=== PATIENT | female | born 1950 | race Caucasian/White ===

== ENCOUNTER → 2016-04-18 | Outpatient (CLI) | payer OTHER ==
[~2016-04-18] MED LIST: ACET-1222 PO; ACET650T51 PO; ASCO500C3 PO; B-COCAP2 PO; BILBERRY PO; CALC500C73 PO; CHOL1TAB PO; COD LIVER OIL PO; CURCUMIN PO; CYAN1TAB28 PO; GARL400T4 PO; KETO2CRE14 TOP; LUTEIN PO; MAGN500T4 PO; MISC1CAP PO; MULT1CHW39 PO; NXM/40 PO; OMEG10007 PO; POTASSIUM PO; QUIN1CAP5 PO; TURMERIC PO; VITA400C15 PO; VITAMIN D 3 PO; [UNRECOGNIZED DRUG - OTHER] PO
--- NOTE | 2016-04-18 10:34 | DIAGNOSTIC IMAGING REPORT ---
LEFT WRIST 4 VIEWS CLINICAL HISTORY: Left wrist pain of one month's duration. FINDINGS: 4 views of the left wrist are obtained. No prior studies are available for comparison at the time of dictation. The skeletal structures are osteopenic. No fracture is seen. Arthritic change is present at the first carpometacarpal joint. The overlying soft tissues are within normal limits. IMPRESSION: No acute bony abnormality is seen in the left wrist. Electronically signed by: Jesus Galan M.D. 04/18/2016 10:32 AM Dictated Date/Time: 04/18/2016 10:31 AM
== END | disposition home or self-care (01) ==
LOC: C.RADBC 09:23
PROVIDERS: ATTEND Internal Medicine
DX: M25.532 Pain in left wrist (principal)

== ENCOUNTER → 2016-05-25 | Outpatient (CLI) | payer OTHER ==
--- NOTE | 2016-05-25 14:37 | MAMMOGRAPHY REPORT ---
BILATERAL DIGITAL SCREENING MAMMOGRAM WITH CAD: 05/25/2016 CLINICAL HISTORY: Routine screening. Patient has no complaints. TECHNIQUE: Bilateral CC, MLO, repeat left MLO and bilateral CC views with the nipples in profile wer e obtained. Current study was also evaluated with a Computer Aided Detection (CAD) system. COMPARISON: Comparison is made to exams dated: 01/28/2011 mammogram and 01/27/2010 mammogram - [facility]. BREAST COMPOSITION: The tissue of both breasts is almost entirely fatty. FINDINGS: There is stable asymmetry in the 9:00 anterior subareolar right breast. Scattered stable benign-appearing calcifications bilaterally. No suspicious mass, architectural distortion or clust er of suspicious microcalcifications is seen. IMPRESSION: ACR BI-RADS CATEGORY 1: NEGATIVE There is no mammographic evidence of malignancy. A 1 year screening mammogram is recommended. The p atient will receive written notification of the results. Approximately 10% of breast cancers are not detected with mammography. A negative mammographic repor t should not delay biopsy if a clinically suggestive mass is present. France Momin M.D. ay/:05/25/2016 14:02:48 Bone Char Operator: Katie DXION(Luzmaria)(Orion)(BD), [facility] letter sent: Normal 1/2 BI-RADS Code: ACR BI-RADS Category 1: Negative
== END | disposition home or self-care (01) ==
LOC: C.MAMM 10:40
PROVIDERS: ATTEND Obstetrics & Gynecology
DX: Z12.31 Encounter for screening mammogram for malignant neoplasm of breast (principal)

== ENCOUNTER → 2016-05-27 | Outpatient (CLI) | payer OTHER | END | disposition home or self-care (01) | LOC: C.PAPS 16:06 | PROVIDERS: ATTEND Obstetrics & Gynecology | DX: Z01.419 Encounter for gynecological examination (general) (routine) without abnormal findings (principal) ==

== ENCOUNTER → 2016-06-11 | Outpatient (CLI) | payer OTHER | END | disposition home or self-care (01) | LOC: C.LAB1850 08:56 | PROVIDERS: ATTEND Obstetrics & Gynecology | DX: N83.299 Other ovarian cyst, unspecified side (principal) ==

== ENCOUNTER → 2016-06-16 | Day surgery (SDC) | payer OTHER ==
[2016-06-11 15:48] VITALS: Ht 154.9 cm; Wt 86.8 kg
[~2016-06-16] VITALS: Ht 154.9 cm; Wt 86.8 kg
[~2016-06-16] MED LIST changes: +500ML BSS 0.3ML EPI 1:1000PF IRRIG ONE; -ACET-1222 PO; +ACETAMINOPHEN 325 MG TAB PO PRN; +AMVISC PLUS 0.8ML SYRINGE INT OCU ONE; +ATROPINE SULFATE 0.1 MG/ML 5ML SYR IV PRN; -B-COCAP2 PO; +BSS FLUSH ONE; -CALC500C73 PO; -CHOL1TAB PO; +EpINEphrine INJ 1MG/ML AMP 1 MG/ML AMP ONE; -GARL400T4 PO; +LACTATED RINGER'S 1000ML 500 ML IV SCH; +LIDOCAINE 3.5% OPH GEL PER APPLICATION CHARGE ONE; +LIDOCAINE HCL 1% MPF 2 ML VIAL ONE; +MIDAZOLAM HCL 1 MG/ML 2ML VIAL ONE; -MULT1CHW39 PO; +OCUCOAT 1 ML SOLN IO ONE; +POVIDONE-IODINE OP SOLN 30 ML BTL ONE; +PROPARACAINE 0.5% OP SOLN PER DROP CHARGE OPR SCH; +TOBRAMYCIN/DEXAMETHASONE OPH OINT PER APPLN CHARGE ONE
[2016-06-16] MEDS: PHENYLEPHRINE HCL 2.5% OP SOLN PER DROP CHARGE OPR SCH ×2 (08:12→08:17)
[2016-06-16] MEDS: TROPICAMIDE 1% OP SOLN PER DROP CHARGE OPR SCH ×2 (08:13→08:18)
[2016-06-16] MEDS: CYCLOPENTOLATE HCL 1% OP SOLN PER DROP CHARGE OPR SCH ×2 (08:14→08:19)
[2016-06-16] MEDS: KETOROLAC 0.5% OP SOLN PER DROP CHARGE OPR SCH ×2 (08:15→08:20)
[2016-06-16] MEDS: GATIFLOXACIN OP SOLN PER DROP CHARGE OPR SCH ×2 (08:16→08:26)
--- NOTE | 2016-06-16 08:31 | History & Physical Bridge - SC ---
H&P Re-Evaluation Bridge Note: I have examined the patient, reviewed the History & Physical and in the interval since the performance of the History & Physical I have noted the following changes of clinical significance: No changes noted
--- NOTE | 2016-06-16 09:13 | Discharge Instructions-SurgCtr ---
Discharge Instructions Date of Service Jun 16, 2016. Visit Reason for Visit: Right Cataract Discharge Discharge Diagnosis / Problem: cataract Discharge Goals Goal(s): Improve function Activity Recommendations Activity Limitations: per Instructions/Follow-up section Anesthesia . Post Anesthesia Instructions: If you have had General Anesthesia or IV Sedation: * Do not drive today. * Resume driving when surgeon permits. * Do not make important decisions or sign legal documents today. * Call surgeon for: 1. Temperature elevations greater than 101 degrees F. 2. Uncontrollable pain. 3. Excessive bleeding. 4. Persistent nausea and vomiting. 5. Medication intolerance (nausea, vomiting or rash). * For nausea and vomiting use only clear liquids such as: tea, soda, bouillon until nausea subsides, then gradually increase diet as tolerated. * If you have any concerns or questions, call your surgeon's office. If physician is unavailable and it is an emergency, call 911 or go to the nearest emergency room. . Instructions / Follow-Up Instructions / Follow-Up ACTIVITY RECOMMENDATIONS: * No strenuous lifting, jogging or running for 4 days * No swimming or yard work for 1 week. * Limited bending is permitted, such as putting on shoes. RETURN TO SCHOOL/WORK: No work until seen by physician in office. MEDICATIONS: Resume previous medications unless instructed otherwise by your surgeon. This includes eye drops for glaucoma. Zymaxid/Gatifloxacin (alanis cap) - one drop every 2 hours until bedtime Nevanac/Ilevro/Prolensa/Ketorolac (iglesias cap) - one drop every 4 hours until bedtime Prednisolone (white/pink cap, SHAKE WELL) - one drop every 2 hours until bedtime Starting tomorrow - all 3 drops every 4 hours until seen in the office Optive drops - as needed for discomfort SPECIAL CARE INSTRUCTIONS: * Wear eyeshield when sleeping, for four nights. * You may wear your own glasses or sunglasses while awake. * You may read or watch TV * You may shower and wash your face, but be gentle around the eye and pat dry. * Blurry vision and mild irritation are normal. * Call office if pain is more severe or vision becomes dark at . FOLLOW UP VISIT: Follow-up with Dr Iqbal tomorrow. Diet Recommendations Home Diet: resume previous diet Procedures Procedures Performed: Right Cataract Phacoemulsification With Intraocular Lens Implant Pending Studies Studies pending at discharge: no Medical Emergencies . Who to Call and When: Medical Emergencies: If at any time you feel your situation is an emergency, please call 911 immediately. . Non-Emergent Contact Non-Emergency issues call your: Software Validation Technician . . "Provider Documentation" section prepared by Manfred Iqbal.
--- NOTE | 2016-06-16 09:13 | [facility] Operative Report ---
Operative Report Date of Service Jun 16, 2016. Operative Report 1. PREOPERATIVE DIAGNOSIS: Cataract of the right eye. 2. POSTOPERATIVE DIAGNOSIS: Same. 3. PROCEDURE: Phacoemulsification with intraocular lens implantation of the right eye. SURGEON: Dr. Manfred Iqbal. ANESTHESIA: Topical Lidocaine gel, 1% Non- Preserved intracameral Lidocaine, and monitored intravenous sedation. INDICATIONS FOR THE PROCEDURE: The patient is a 65 - year-old female with a history of cataract of the right eye causing significant visual impairment. The details of the proposed procedure were explained to the patient who asked appropriate questions and following discussion of all risks, benefits and alternatives agreed to have the procedure done. 4. OPERATION AND FINDINGS: DESCRIPTION OF PROCEDURE: After informed consent was obtained, the patient was brought to the Operating Room at the [facility]. The patient was placed in a supine position and then the right eye was prepped and draped in the usual sterile fashion for intraocular surgery. A drop of topical Lidocaine gel was placed in the operative eye. A wire lid speculum was then placed in the fornices. A corneal paracentesis was then created temporally. The Non-Preserved Lidocaine was then instilled into the anterior chamber. The anterior chamber was then pressurized with viscoelastic. A 2.0 mm clear corneal incision was then created temporally. A cystotome was inserted into the anterior chamber and used to create a tear in the anterior lens capsule. This capsular tear was then used to create a small flap and the flap was dragged in a counterclockwise direction in order to create a continuous curvilinear capsulorrhexis. Hydrodissection was accomplished with balanced salt solution. Phacoemulsification of the lens nucleus was then performed in a standard [id number] technique. The phaco time was 23 seconds with an average power of 12 %. The remaining cortical material was removed using irrigation aspiration. The capsular bag was then filled with viscoelastic. A [employer]ch [employer] Lomb MI60L +20.0 diopters lens was then loaded into the injector and injected into the capsular bag. The remaining viscoelastic was removed with the irrigation aspiration handpiece. The wound was hydrated and then checked and found to be watertight. The intraocular pressure was checked and found to be adequate. The wire lid speculum was removed and the patient's face was cleaned and dried. TobraDex ointment was placed in the inferior fornix. The patient was discharged to the Recovery Room having tolerated the procedure well. There were no complications. The patient will be seen tomorrow in the office for follow-up. I attest to the content of the Intraoperative Record and any orders documented therein. Any exceptions are noted below.
[2016-06-16 09:15] VITALS: TEMP 36.6
[2016-06-16 09:36] VITALS: BP 130/69; PULSE 59; O2SAT 97
--- NOTE | 2016-06-16 09:45 | Anesthesia Progress Nt - [facility] ---
Anesthesia Post Op Note Date & Time Jun 16, 2016 at 09:46 Vital Signs Vital Signs Past 12 Hours Date Time Temp Pulse Resp B/P Pulse Ox O2 Delivery O2 Flow Rate FiO2 06/16/16 09:36 59 16 130/69 97 Room Air 06/16/16 09:15 36.6 57 18 136/76 94 Room Air 06/16/16 08:06 36.9 57 16 131/74 97 Room Air Notes Mental Status: alert / awake / arousable, participated in evaluation Pt Amnestic to Procedure: Yes Nausea / Vomiting: adequately controlled Pain: adequately controlled Airway Patency, RR, SpO2: stable & adequate BP & HR: stable & adequate Hydration State: stable & adequate Anesthetic Complications: no major complications apparent
== END | disposition home or self-care (01) ==
LOC: X.SURG 07:44 → MERGE 11:30
PROVIDERS: ATTEND Ophthalmology
DX: H26.9 Unspecified cataract (principal); Z88.0 Allergy status to penicillin; Z88.2 Allergy status to sulfonamides

== ENCOUNTER → 2016-09-24 | Outpatient (CLI) | payer OTHER ==
[~2016-09-24] MED LIST changes: -500ML BSS 0.3ML EPI 1:1000PF IRRIG ONE; -ACETAMINOPHEN 325 MG TAB PO PRN; -AMVISC PLUS 0.8ML SYRINGE INT OCU ONE; -ATROPINE SULFATE 0.1 MG/ML 5ML SYR IV PRN; -BSS FLUSH ONE; -EpINEphrine INJ 1MG/ML AMP 1 MG/ML AMP ONE; -LACTATED RINGER'S 1000ML 500 ML IV SCH; -LIDOCAINE 3.5% OPH GEL PER APPLICATION CHARGE ONE; -LIDOCAINE HCL 1% MPF 2 ML VIAL ONE; -MIDAZOLAM HCL 1 MG/ML 2ML VIAL ONE; -OCUCOAT 1 ML SOLN IO ONE; -POVIDONE-IODINE OP SOLN 30 ML BTL ONE; -PROPARACAINE 0.5% OP SOLN PER DROP CHARGE OPR SCH; -TOBRAMYCIN/DEXAMETHASONE OPH OINT PER APPLN CHARGE ONE
[2016-09-24 12:24] LABS: BLOOD UREA NITROGEN 13 mg/dl (7-18); BUN/CREATININE RATIO 18.6 (10-20); CARBON DIOXIDE 30 mmol/L (21-32); CHLORIDE 105 mmol/L (98-107); CREATININE 0.71 mg/dl (0.60-1.20); GLUCOSE 105 mg/dl (70-99); SODIUM 140 mmol/L (136-145)
[2016-09-24 12:26] LABS: CHOLESTEROL 193 mg/dl (0-200); CHOLESTEROL/HDL RATIO 3.9; HDL CHOLESTEROL 49 mg/dl; LDL CHOLESTEROL CALCULATED 126 mg/dl; TRIGLYCERIDES 88 mg/dl (0-150); VERY LOW DENSITY LIPOPROT CALC 18 mg/dl
[2016-09-24 12:31] LABS: CALCIUM 9.6 mg/dl (8.5-10.1)
[2016-09-24 12:46] LABS: ESTIMATED AVERAGE GLUCOSE 123 mg/dl; HA1C FLAG Normal (Normal)
--- NOTE | 2016-09-30 13:18 | CODING QUERY MEDICAL NECESSITY ---
CQSUPPORTING DIAGNOSIS NEEDED A supporting diagnosis is required for the test/procedure performed on this patient in order for us to be reimbursed by the patient's insurance. Please provide a supporting diagnosis for the following test/procedure listed below next to the test name along with your signature. *If there is no additional diagnosis for this patient that would support the following test/procedure please document that below next to the test/procedure. Test(s)/Procedure(s) that require a supporting diagnosis: DOS 09/24/16 GLYCATED HEMOGLOBIN TEST (PRE-DIABETES DOES NOT COVER) Provider Signature: Date: Thank you Evelina Leon Health Information Management Once completed, please kindly fax back to [phone] For questions please call [phone]
== END | disposition home or self-care (01) ==
LOC: C.LAB1850 10:44
PROVIDERS: ATTEND Internal Medicine
DX: R73.03 Prediabetes (principal); E78.00 Pure hypercholesterolemia, unspecified; Z86.39 Personal history of other endocrine, nutritional and metabolic disease

== ENCOUNTER → 2016-10-05 | Outpatient (CLI) | payer OTHER ==
--- NOTE | 2016-10-05 10:28 | DIAGNOSTIC IMAGING REPORT ---
ABDOMEN COMPLETE (US) CLINICAL HISTORY: Epigastric abdominal pain. COMPARISON STUDY: Renal ultrasound April 29, [address] of the abdomen and pelvis November 01, 2008. FINDINGS: No hepatic lesions are identified. There is mild dilatation of the common bile duct status post cholecystectomy. The common bile duct measures 9 mm in caliber. This is increased since CT of November 01, 2008. The pancreatic body is normal. The head and tail are obscured. The size of the spleen is normal. The right kidney measures 10 cm and the left measures 11.2 cm. There is no hydronephrosis. There is a 3.1 cm cyst within lower pole of the left kidney. No calculi or masses are identified by sonography. The caliber of the abdominal aorta is normal. Visualized portions of the IVC are patent. IMPRESSION: 1. Mild dilatation of the common bile duct, measuring 9 mm. This is likely related to prior cholecystectomy although could be correlated with obstructive liver function tests. 2. No hydronephrosis. 3. 3.1 cm left renal cyst. Electronically signed by: Mike Blair M.D. 10/05/2016 10:27 AM Dictated Date/Time: 10/05/2016 10:24 AM
== END | disposition home or self-care (01) ==
LOC: C.ULTRBC 08:46
PROVIDERS: ATTEND Internal Medicine
DX: R10.13 Epigastric pain (principal)

== ENCOUNTER → 2016-10-09 | Outpatient (CLI) | payer OTHER | END | disposition home or self-care (01) | LOC: C.LAB1850 08:17 | PROVIDERS: ATTEND Internal Medicine | DX: R10.13 Epigastric pain (principal) ==

== ENCOUNTER → 2017-05-25 | Outpatient (CLI) | payer OTHER ==
[2017-05-25 12:28] LABS: ALT/SGPT 21 U/L (12-78); AST/SGOT 18 U/L (15-37); BLOOD UREA NITROGEN 18 mg/dl (7-18); CALCIUM 8.9 mg/dl (8.5-10.1); CARBON DIOXIDE 29 mmol/L (21-32); CREATININE 0.71 mg/dl (0.60-1.20); GLUCOSE 104 mg/dl (70-99); POTASSIUM 4.1 mmol/L (3.5-5.1); SODIUM 137 mmol/L (136-145)
[2017-05-25 12:41] LABS: CHOLESTEROL 207 mg/dl (0-200); LDL CHOLESTEROL CALCULATED 140 mg/dl
[2017-05-25 13:25] LABS: HEMOGLOBIN A1C 5.9 % (4.5-5.6)
== END | disposition home or self-care (01) ==
LOC: C.LAB1850 10:09
PROVIDERS: ATTEND Internal Medicine
DX: R73.03 Prediabetes (principal); E78.00 Pure hypercholesterolemia, unspecified

== ENCOUNTER 2022-02-02 13:08 | Inpatient (IN) ==
[2022-02-02] MEDS ORDERED: fentaNYL citrate 100 MCG/2 ML VIAL IV STA (13:25)
[2022-02-02] MEDS ORDERED: SODIUM CHLORIDE 0.9% 1000ML 1,000 ML IV ONE (13:25)
[2022-02-02] MEDS ORDERED: METOPROLOL TARTRATE 1 MG/ML VIAL IV STA ×2 (13:25→14:31)
--- NOTE | 2022-02-02 13:29 | Emergency Department Note ---
Impression & Plan Atrial fibrillation with rapid ventricular response, Hypomagnesemia, Hypokalemia, Acute dehydration, Colitis ED Provider Note Name: SOPHIE WANG Age: 71 Sex: F Arrives Via: Ambulance Informant: Patient,, EMS ED Provider: Lincoln Lainez MD Chief Complaint: Illness Impression: As per impressions above Medical Decision Making: Pleasant though clearly dehydrated 71-year-old female arrives noting ongoing abdominal issues nausea vomiting and some diarrhea over the last few weeks though severely worse the last few days and now severe weakness. She is comp laining of some abdominal pain and a headache this imaging of these were obtained and CT imaging of the abdomen does reveal some colitis but fortunately CT of the head is without intracranial hemorrhage. Extensive laboratory work-up obtained and does show significant electrolyte imbalance including low potassium and low magnesium. initial replacement therapy was ordered by me. Furthermore I will note the patient arrives tachycardic and initial EKG is concerning for A. fib. In conjunction with IV fluids along with the setting of decent blood pressure I felt that IV Lopressor was reasonable and after the second dose her heart rate did start coming down to a much more acceptable region. Patient does not have peritonitis on examination, she is neurologically intact and she is not septic appearing nor do I find any clear evidence of sepsis at this time. I feel her tachycardia is secondary to new onset A. fib RVR as well as significant dehydration and not secondary to acute bacterial infection. Given her complexity and findings hospitalist was consulted for further management. I kvng l note I held off on starting any anticoagulation as her INR is already slightly elevated. This is unclear whether it is due to severe malnutrition or other pathology though will defer to hospitalist for further work-up on this. I do not think it is consistent with DIC given her other findings at this time and she has no evidence of bleeding or bruising on examination at this time either. Prior Medical Record and Triage/Nursing Notes reviewed by Me Additional history obtained from chart Differentials:Infection, dehydration, metabolic abnormality, hypo/hy perglycemia, electrolyte disturbance, anemia, hypoxia, cardiac sources, intracerebral event, toxicologic, neurologic, as well as other pathologies. Vital Signs: reviewed and remarkable for tachycardia Interventions: Normal saline bolus IV, Lopressor 5 mg IV x2, magnesium 2 g IV, potassium 10 mEq IV Labs:Reviewed and remarkable for significant laboratory derangement. Not consistent with lab error/delusional. Imaging:CT imaging of the head is unremarkable per radiology. CT imaging the abdomen shows some mild colitis distally. As per radiology EKG:As Per My interpretation: Indication Weakness/Tachycardia. Atrial fibrillation with rapid ventricular response at 147 bpm with a QTC of 525 as well as a baseline tremor noted throughout the tracings. Does not appear to be atrial flutter based on the irregularity of the beats. There is no clear ische rosemarie findings. She does have an acute change from her EKG October 25, 2021 where she was in normal sinus rhythm. Cardiac/Tele Monitoring: Cardiac Monitoring: An Order was placed for continuous cardiac monitoring. The monitor shows a rate of afib rvr with a 120 rhythm. [facility] Plan: Disposition:Hospitalization. Condition: Fair\\ History of Present Illness:71-year-old female arrives for evaluation of illness. Patient notes she has been ill for the last month or so the last few days significantly sicker. For the last 2 to 3 days increasing nausea, vomiting, diarrhea. Notes increasing lower abdominal pain. Today with a severe headache after vomiting as well. She notes she feels diffusely weak tired. She denies any specific chest pain or shortness of breath but states she just feels so exhausted she cannot ambulate. Denies any swelling in her legs or arms. Denies any neurologic deficits. Patient has had no fevers, chills, back pain, syncope, visual changes, black/bloody stools, other concerning signs or symptoms. No medications prior to arrival at home but did have 500 mL IV normal saline bolus as well as 4 mg IV Zofran. She notes her nausea is much improved but she still has severe abdominal pain along with her headache. Exertion makes worse rest makes better. Zofran did seem to help the nausea ROS: See above HPI for pertinent positives & negatives. A total of 10 systems reviewed and were otherwise negative. Past Medical History:See Below Past Surgical History:See Below Family History:See Below Social History:See Below Home Medications:See Below Allergies:See Below Vitals:Blood Pressure: 145/99, Pulse 145, RR 18, T 36.8C, O2 98% on RA Physical Exam: GENERAL: Patient is unwell, tired appearing and in moderate distress. HEAD: AT/NC EYES: No scleral icterus, unremarkable pupils. ENT: Mucous membranes moist, no nasal congestion. NECK: No masses appreciated, nomeningismus, trachea is midline. RESPIRATORY: No dyspnea. Clear to auscultation and equal bilaterally. No wheeze, no rhonchi. CARDIOVASCULAR: Tachy, Irregular.No murmurs, rubs, gallops appreciated. GASTROINTESTINAL: Hyperactive bowel sounds with vague diffuse lower abdominal TTP.No masses appreciated. BACK: No midline tenderness, no CVA tenderness EXTREMITIES: Normal motion all extremities, no cyanosis, no edema. NEUROLOGIC: Alert and oriented, no acute motor or sensory deficits, no focal weakness, cranial nerves grossly intact. SKIN: No rash, no jaundice, no diaphoresis. PSYCH: Appropriate GCS: 15 ED Course: Times/Reassessments: S heart rate improving after fluids and Lopressor. Blood pressure remained stable. She does appear much improved following these medications. She is agreeable to hospitalization. Critical Care: I have personally spent 45 minutes of critical care time in the direct management of this patient. Afib RVR and multiple electrolyte imbalance requiring resuscitation and multiple medication management. This was a life/limb threatening event. This 45 minutes is in excess of all separately billable procedures. Lincoln Lainez MD Past Med/Surg History Medical History Chronic back pain Cyst, kidney, acquired pt denies GERD (gastroesophageal reflux disease) H/O irritable bowel syndrome History of type 2 diabetes mellitus Obesity Osteoarthritis Scarlet fever hx (1967) Stress incontinence Varicose vein of leg Surgical History H/O tubal ligation History of cataract surgery RIGHT AND LEFT History of cholecystectomy OPEN History of colonoscopy History of herniorrhaphy LEFT INGUINAL HERNIA Hx of tonsillectomy Family History Sister Ovarian cancer Other Breast cancer Gallbladder disease Heart disease Hypercholesteremia Hypertension IBS (irritable bowel syndrome) No family history of adverse response to anesthesia Osteoporosis Seizure Thyroid disease Denies family history of Prostate cancer Myocardial infarction Colorectal cancer Social History Smoking Status: Former smoker Tobacco Type: Cigarettes Second Hand Exposure: No; Do You Dip or Chew Tobacco: No; Tobacco Cessation Education Requested by Patient: No Hx Alcohol Use: No Hx Substance Use: No Preferred Language: Montenegrin Communication Ability: Effective Patient Registration Supervisor Required: No Beliefs That Will Affect Care: None marital status: Current Living Situation: Alone Current Living Situation Comment: friend current occupational status: retired Other Information That Helps Us Care for You: No Feels Safe at Home: Yes Safety Concerns: Feels Safe At This Time Childhood Exposure to Second-Hand Smoke: Yes Physical Activity Frequency: Does not Exercise Seatbelt Use: always Assistive Devices: Cane Allergies Allergies Allergy/AdvReac Type Severity Reaction Status Date / Time gatifloxacin Allergy Severe redness of Verified 10/01/21 08:53 the eye (zymaxid) Penicillins Allergy Severe "ALMOST Verified 10/01/21 08:53 " venom-wasp Allergy Severe Anaphylaxis Verified 10/01/21 08:53 house dust Allergy Intermediate itchy Verified 10/01/21 08:53 house dust mite Allergy Intermediate itchy Verified 10/01/21 08:53 mold Allergy Intermediate sinus Verified 10/01/21 08:53 congestion ragweed pollen Allergy Intermediate itchy Verified 10/01/21 08:53 aspirin Allergy Unknown throat Verified 10/01/21 08:53 swelling (as a child) bee venom protein (honey bee) Allergy Unknown SWELLING Verified 10/01/21 08:53 AND SOB Sulfa (Sulfonamide Allergy Unknown HIVES Verified 10/01/21 08:53 Antibiotics) glue Allergy Intermediate irritation Uncoded 10/01/21 08:53 on skin when using in the past EYE DROPS WITH SULFATE Allergy Unknown HIVES Uncoded 10/01/21 08:53 FRESHLY CUT GRASS Allergy Unknown SHORTNESS Uncoded 10/01/21 08:53 OF BREATH Home Meds Home Medications Medication Instructions Recorded Confirmed acetaminophen 650 mg 2 tab PO Q12H PRN Pain 04/25/18 02/02/22 tablet,extended release (Tylenol Arthritis Pain) cholecalciferol (vitamin D3) 125 5,000 unit PO QPM 04/25/18 02/02/22 mcg (5,000 unit) tablet (Vitamin D3) potassium gluconate 595 mg (99 mg) 1 tab PO QAM 04/25/18 02/02/22 tablet,extended release turmeric 400 mg capsule 1 tab PO BID 04/25/18 02/02/22 vitamin E 268 mg (400 unit) capsule 400 unit PO QAM 04/25/18 02/02/22 ascorbic acid (vitamin C) 500 mg 500 mg PO QAM 11/29/19 02/02/22 chewable tablet (Vitamin C) vitamin B complex 1 tab PO DAILY 10/01/21 02/02/22 Previous Rx's Medication Instructions Recorded esomeprazole magnesium 40 mg 40 mg PO QAM #30 caps 10/17/21 capsule,delayed release (Nexium) Results & Data (ED) Laboratory Data Result diagrams: 02/02/22 13:18 02/03/22 14:00 Lab Results 02/02/22 02/02/22 02/02/22 Range/Units 12:46 13:18 13:18 WBC 9.65 (4.8-10.8) K/ul RBC 3.53 L (3.93-5.22) M/uL Hgb 11.0 L (12.0-16.0) g/dl Hct 32.3 L (34.1-44.9) % MCV 91.5 (80.0-100.0) fL MCH 31.2 (25.0-34.0) pg MCHC 34.1 (32.0-36.0) g/dL RDW Std Deviation 40.7 (36.4-46.3) fL RDW Coeff of Jerod 12.1 (11.5-14.5) % Plt Count 228 (130-400) K/uL MPV 9.4 (9.4-12.3) fL Immature Gran % (Auto) 0.7 % Neut % (Auto) 88.4 % Lymph % (Auto) 6.0 % [place] % (Auto) 4.8 % Eos % (Auto) 0.0 % Baso % (Auto) 0.1 % Neut # (Auto) 8.53 H (1.4-6.5) K/uL Lymph # (Auto) 0.58 L (1.2-3.4) K/uL [place] # (Auto) 0.46 (0.24-0.82) K/uL Eos # (Auto) 0.00 (0-0.50) K/uL Baso # (Auto) 0.01 (0-0.2) K/uL Immature Gran # (Auto) 0.07 H (0.00-0.02) K/uL PT 19.3 H (9.0-12.0) Seconds INR 1.9 H (0.9-1.1) APTT 33.3 H (21.0-31.0) Seconds PTT Ratio 1.2 Sodium (136-145) mmol/L Potassium (3.5-5.1) mmol/L Chloride (98-107) mmol/L Carbon Dioxide (21-32) mmol/L Anion Gap (3-11) BUN (6-23) mg/dl Creatinine (0.6-1.2) mg/dl Est Cr Clr Drug Dosing ml/min Est GFR ( Amer) ml/min Est GFR (Non-Af Amer) ml/min BUN/Creatinine Ratio (10-20) Glucose (70-99(Fasting)) mg/dl Calcium (8.5-10.1) mg/dl Magnesium (1.7-2.4) mg/dl Total Bilirubin (0.2-1.0) mg/dl Direct Bilirubin (0-0.2) mg/dl AST (13-39) U/L ALT (7-52) U/L Alkaline Phosphatase (34-104) U/L Troponin I High Sens (0-14) pg/ml Total Protein (6.0-8.3) gm/dl Albumin (3.4-5.0) gm/dl Lipase (11-82) U/L 25-OH Vitamin D Total (30-100) ng/ml Urine Color Urine Appearance (Clear) Urine pH (4.5-7.5) Ur Specific [place] (1.000-1.030) Urine Protein (Negative) Urine Glucose (UA) (Negative) Urine Ketones (Negative) Urine Blood (Negative) Urine Nitrite (Negative) Urine Bilirubin (Negative) Urine Urobilinogen (Negative) Ur Leukocyte Esterase (Negative) Urine WBC (Auto) (0-5) /hpf Urine RBC (Auto) (0-4) /hpf U Hyaline Cast (Auto) (0-5) /lpf U Epithel Cells (Auto) (0-5) /lpf Urine Bacteria (Auto) (Negative) Stl C. cayetanensis PCR Not Detected (NotDetected) Stool Rotavirus A PCR Not Detected (NotDetected) Stl Adenov F 40/41 PCR Not Detected (NotDetected) Stool Astrovirus (PCR) Not Detected (NotDetected) Stool Campylobacter PCR Not Detected (NotDetected) Stool Cryptosporidium PCR Not Detected (NotDetected) Stl E.coli Shiga Tox PCR Not Detected (NotDetected) Stl Enterotoxigenic E PCR Not Detected (NotDetected) Stool EPEC (PCR) Not Detected (NotDetected) Stool EAEC (PCR) Not Detected (NotDetected) Stl E. histolytica PCR Not Detected (NotDetected) Stool Giardia Lamblia PCR Not Detected (NotDetected) Stool Salmonella PCR Not Detected (NotDetected) Stool Sapovirus (PCR) Not Detected (NotDetected) Stl P. shigelloides PCR Not Detected (NotDetected) Stl Shigella/EIEC PCR Not Detected (NotDetected) St Y.enterocolitica PCR Not Detected (NotDetected) Stool Vibrio (PCR) Not Detected (NotDetected) Stl Vibrio cholerae PCR Not Detected (NotDetected) Stl Norovirus GI/GII PCR Not Detected (NotDetected) 02/02/22 02/02/22 02/02/22 Range/Units 13:18 13:18 14:46 WBC (4.8-10.8) K/ul RBC (3.93-5.22) M/uL Hgb (12.0-16.0) g/dl Hct (34.1-44.9) % MCV (80.0-100.0) fL MCH (25.0-34.0) pg MCHC (32.0-36.0) g/dL RDW Std Deviation (36.4-46.3) fL RDW Coeff of Jerod (11.5-14.5) % Plt Count (130-400) K/uL MPV (9.4-12.3) fL Immature Gran % (Auto) % Neut % (Auto) % Lymph % (Auto) % [place] % (Auto) % Eos % (Auto) % Baso % (Auto) % Neut # (Auto) (1.4-6.5) K/uL Lymph # (Auto) (1.2-3.4) K/uL [place] # (Auto) (0.24-0.82) K/uL Eos # (Auto) (0-0.50) K/uL Baso # (Auto) (0-0.2) K/uL Immature Gran # (Auto) (0.00-0.02) K/uL PT (9.0-12.0) Seconds INR (0.9-1.1) APTT (21.0-31.0) Seconds PTT Ratio Sodium 141 (136-145) mmol/L Potassium 2.6 L (3.5-5.1) mmol/L Chloride 95 L (98-107) mmol/L Carbon Dioxide 28 (21-32) mmol/L Anion Gap 18 H (3-11) BUN 13 (6-23) mg/dl Creatinine 0.70 (0.6-1.2) mg/dl Est Cr Clr Drug Dosing 72.1 ml/min Est GFR ( Amer) 100.3 ml/min Est GFR (Non-Af Amer) 86.6 ml/min BUN/Creatinine Ratio 18.6 (10-20) Glucose 162 H (70-99(Fasting)) mg/dl Calcium 6.3 L (8.5-10.1) mg/dl Magnesium < 0.5 L* (1.7-2.4) mg/dl Total Bilirubin 0.6 (0.2-1.0) mg/dl Direct Bilirubin 0.2 (0-0.2) mg/dl AST 22 (13-39) U/L ALT 12 (7-52) U/L Alkaline Phosphatase 59 (34-104) U/L Troponin I High Sens 14.1 H D (0-14) pg/ml Total Protein 7.2 (6.0-8.3) gm/dl Albumin 3.7 (3.4-5.0) gm/dl Lipase 172 H (11-82) U/L 25-OH Vitamin D Total 102.2 H (30-100) ng/ml Urine Color Yellow Urine Appearance Clear (Clear) Urine pH 5.5 (4.5-7.5) Ur Specific [place] 1.016 (1.000-1.030) Urine Protein 1+ H (Negative) Urine Glucose (UA) Negative (Negative) Urine Ketones 3+ H (Negative) Urine Blood Negative (Negative) Urine Nitrite Negative (Negative) Urine Bilirubin Negative (Negative) Urine Urobilinogen Negative (Negative) Ur Leukocyte Esterase Negative (Negative) Urine WBC (Auto) 1-5 (0-5) /hpf Urine RBC (Auto) 5-10 H (0-4) /hpf U Hyaline Cast (Auto) 10-30 H (0-5) /lpf U Epithel Cells (Auto) >30 H (0-5) /lpf Urine Bacteria (Auto) 1+ H (Negative) Stl C. cayetanensis PCR (NotDetected) Stool Rotavirus A PCR (NotDetected) Stl Adenov F 40/41 PCR (NotDetected) Stool Astrovirus (PCR) (NotDetected) Stool Campylobacter PCR (NotDetected) Stool Cryptosporidium PCR (NotDetected) Stl E.coli Shiga Tox PCR (NotDetected) Stl Enterotoxigenic E PCR (NotDetected) Stool EPEC (PCR) (NotDetected) Stool EAEC (PCR) (NotDetected) Stl E. histolytica PCR (NotDetected) Stool Giardia Lamblia PCR (NotDetected) Stool Salmonella PCR (NotDetected) Stool Sapovirus (PCR) (NotDetected) Stl P. shigelloides PCR (NotDetected) Stl Shigella/EIEC PCR (NotDetected) St Y.enterocolitica PCR (NotDetected) Stool Vibrio (PCR) (NotDetected) Stl Vibrio cholerae PCR (NotDetected) Stl Norovirus GI/GII PCR (NotDetected) Administered Medications Acetaminophen (Acetaminophen 325 Mg Tab) 1,300 mg PO Q12H PRN PRN Reason: Pain Stop: 03/04/22 17:52 Last Admin: 02/03/22 10:09 Dose: 1,300 mg Documented By: KAYDEN Apixaban (Apixaban 5 Mg Tablet) 5 mg PO BID [facility] Stop: 03/04/22 20:59 Last Admin: 02/03/22 07:55 Dose: 5 mg Documented By: Admin: 02/02/22 20:37 Dose: 5 mg Documented By: ZEE Lactated Ringer's (Lr) 1,000 mls @ 125 mls/hr IV .Q8H EDITA Stop: 03/04/22 15:29 Last Admin: 02/03/22 10:13 Dose: 125 mls/hr Documented By: Infusion: 02/03/22 10:13 Dose: 125 mls/hr Documented By: Admin: 02/03/22 02:22 Dose: 125 mls/hr Documented By: Infusion: 02/03/22 00:26 Dose: 125 mls/hr Documented By: Admin: 02/02/22 16:26 Dose: 125 mls/hr Documented By: IVETTE Magnesium Oxide (Magnesium Oxide 400 Mg Tab) 400 mg PO BID [facility] Stop: 03/04/22 20:59 Last Admin: 02/03/22 07:56 Dose: 400 mg Documented By: Admin: 02/02/22 20:36 Dose: 400 mg Documented By: ZEE Metoprolol Tartrate (Metoprolol Tartrate 25 Mg Tab) 12.5 mg PO BID [facility] Stop: 03/04/22 20:59 Last Admin: 02/03/22 07:56 Dose: 12.5 mg Documented By: Admin: 02/02/22 20:37 Dose: 12.5 mg Documented By: ZEE Pantoprazole Sodium (Pantoprazole 40 Mg Tab) 40 mg PO [facility]; Protocol Stop: 03/05/22 08:59 Last Admin: 02/03/22 07:56 Dose: 40 mg Documented By: KAYDEN Discontinued Medications Ascorbic Acid (Ascorbic Acid 500 Mg Tab) 500 mg PO [facility] Stop: 03/05/22 08:59 Last Admin: 02/03/22 07:57 Dose: 500 mg Documented By: KAYDEN Fentanyl Citrate (Fentanyl Citrate 100 Mcg/2 Ml Vial) 50 mcg IV NOW STA Stop: 02/02/22 13:26 Last Admin: 02/02/22 13:31 Dose: 50 mcg Documented By: IVETTE Sodium Chloride (Nss 1000ml) 1,000 mls @ 999 mls/hr IV .Q1H1M ONE Stop: 02/02/22 14:25 Last Infusion: 02/02/22 15:53 Dose: 0 mls/hr Documented By: Admin: 02/02/22 13:31 Dose: 999 mls/hr Documented By: IVETTE Magnesium Sulfate/Dextrose (Magnesium Sulfate / D5w) 1 gm in 100 mls @ 200 mls/hr IV Q30M EDITA Stop: 02/02/22 15:11 Last Infusion: 02/02/22 15:53 Dose: 0 mls/hr Documented By: Admin: 02/02/22 15:16 Dose: 200 mls/hr Documented By: Infusion: 02/02/22 15:13 Dose: 200 mls/hr Documented By: Admin: 02/02/22 14:43 Dose: 200 mls/hr Documented By: ML Potassium Chloride (K Chuy / Wtr) 10 meq in 100 mls @ 100 mls/hr IV ONE ONE; Protocol Stop: 02/02/22 15:31 Last Infusion: 02/02/22 16:18 Dose: 0 mls/hr Documented By: Admin: 02/02/22 15:17 Dose: 100 mls/hr Documented By: IVETTE Magnesium Sulfate/Dextrose (Magnesium Sulfate / D5w) 1 gm in 100 mls @ 50 mls/hr IV ONE ONE Stop: 02/02/22 17:18 Last Infusion: 02/02/22 18:45 Dose: 0 mls/hr Documented By: Admin: 02/02/22 15:54 Dose: 50 mls/hr Documented By: IVETTE Magnesium Sulfate/Dextrose (Magnesium Sulfate / D5w) 1 gm in 100 mls @ 50 mls/hr IV Q2H EDITA Stop: 02/02/22 21:38 Last Infusion: 02/02/22 23:22 Dose: 0 mls/hr Documented By: Admin: 02/02/22 20:38 Dose: 50 mls/hr Documented By: Infusion: 02/02/22 20:14 Dose: 50 mls/hr Documented By: Admin: 02/02/22 18:14 Dose: 50 mls/hr Documented By: KAYDEN Calcium Gluconate 3,000 mg/ (Dextrose) 130 mls @ 65 mls/hr IV 2145 ONE Stop: 02/02/22 23:44 Last Infusion: 02/02/22 23:56 Dose: 0 mls/hr Documented By: Admin: 02/02/22 21:53 Dose: 65 mls/hr Documented By: ZEE Magnesium Sulfate/Dextrose (Magnesium Sulfate / D5w) 1 gm in 100 mls @ 50 mls/hr IV Q2H EDITA Stop: 02/03/22 05:44 Last Infusion: 02/03/22 08:54 Dose: 0 mls/hr Documented By: Admin: 02/03/22 05:05 Dose: 50 mls/hr Documented By: Infusion: 02/03/22 05:05 Dose: 50 mls/hr Documented By: Admin: 02/03/22 03:08 Dose: 50 mls/hr Documented By: Infusion: 02/03/22 03:08 Dose: 50 mls/hr Documented By: Admin: 02/03/22 01:25 Dose: 50 mls/hr Documented By: Infusion: 02/03/22 01:15 Dose: 50 mls/hr Documented By: Admin: 02/02/22 23:15 Dose: 50 mls/hr Documented By: ISHAAN Potassium Chloride (K Chuy / Wtr) 10 meq in 100 mls @ 100 mls/hr IV Q1H EDITA Stop: 02/03/22 10:59 Last Infusion: 02/03/22 12:50 Dose: 0 mls/hr Documented By: Admin: 02/03/22 11:04 Dose: 100 mls/hr Documented By: Infusion: 02/03/22 10:49 Dose: 100 mls/hr Documented By: Admin: 02/03/22 09:49 Dose: 100 mls/hr Documented By: Infusion: 02/03/22 09:39 Dose: 100 mls/hr Documented By: Admin: 02/03/22 08:39 Dose: 100 mls/hr Documented By: KAYDEN Metoprolol Tartrate (Metoprolol Tartrate 1 Mg/Ml Vial) 5 mg IV NOW STA Stop: 02/02/22 13:26 Last Admin: 02/02/22 13:31 Dose: 5 mg Documented By: IVETTE Metoprolol Tartrate (Metoprolol Tartrate 1 Mg/Ml Vial) 5 mg IV NOW STA Stop: 02/02/22 14:32 Last Admin: 02/02/22 15:15 Dose: 5 mg Documented By: IVETTE Phytonadione (Phytonadione 5 Mg Tab) 15 mg PO NOW STA Stop: 02/03/22 10:40 Last Admin: 02/03/22 11:21 Dose: 15 mg Documented By: KAYDEN Potassium Chloride (Potassium Chloride Crtab 20 Meq Tabcr) 20 meq PO TID EDITA Stop: 02/04/22 14:01 Last Admin: 02/02/22 20:37 Dose: 20 meq Documented By: ZEE Potassium Chloride (Potassium Chloride Crtab 20 Meq Tabcr) 40 meq PO NOW STA Stop: 02/03/22 07:59 Last Admin: 02/03/22 08:52 Dose: 40 meq Documented By: KAYDEN Vitamin B Complex (Vitamin B Complex Tab) 1 tab PO DAILY EDITA Stop: 03/05/22 08:59 Last Admin: 02/03/22 07:57 Dose: 1 tab Documented By: KAYDEN Vitamin D (Cholecalciferol 5,000 Units 125 Mcg Tab) 5,000 units PO QPM EDITA Stop: 03/04/22 20:59 Last Admin: 02/02/22 20:36 Dose: 5,000 units Documented By: ZEE Vitamin E (Tocopheryl, Dl-Alpha 400 Units 180 Mg Cap) 400 units PO QAM EDITA Stop: 03/05/22 08:59 Last Admin: 02/03/22 07:56 Dose: 400 units Documented By: KAYDEN Discharge Plan Visit Data Chief Complaint: Illness ED Provider: Lincoln Lainez Discharge Problem: Atrial fibrillation with rapid ventricular response, Hypomagnesemia, Hypokalemi a, Acute dehydration, Colitis Patient Disposition: Admitted As Inpatient Discharge Instructions Interventions: ED Discharge Assessment Last Done: 02/02/22 16:58
[2022-02-02 13:36] LABS: Basophils # (auto) 0.01 K/uL (0-0.2); Basophils % (auto) 0.1 %; Hematocrit (blood only) 32.3 % (34.1-44.9); Immature Granulocytes # (auto) 0.07 K/uL (0.00-0.02); Immature Granulocytes % (auto) 0.7 %; Lymphocytes # (auto) 0.58 K/uL (1.2-3.4); Mean Corpuscular Hemoglobin 31.2 pg (25.0-34.0); Mean Corpuscular Hgb Conc 34.1 g/dL (32.0-36.0); Mean Corpuscular Volume 91.5 fL (80.0-100.0); Mean Platelet Volume 9.4 fL (9.4-12.3); Monocytes # (auto) 0.46 K/uL (0.24-0.82); Monocytes % (auto) 4.8 %; Neutrophils # (auto) 8.53 K/uL (1.4-6.5); Neutrophils % (auto) 88.4 %; Platelet Count 228 K/uL (130-400); RDW Coefficient of Variation 12.1 % (11.5-14.5); RDW Standard Deviation 40.7 fL (36.4-46.3); Red Blood Count 3.53 M/uL (3.93-5.22); White Blood Count 9.65 K/ul (4.8-10.8)
[2022-02-02 13:49] LABS: INR 1.9 (0.9-1.1); Partial Thromboplastin Ratio 1.2; Partial Thromboplastin Time 33.3 Seconds (21.0-31.0); Prothrombin Time 19.3 Seconds (9.0-12.0)
[2022-02-02 13:56] LABS: Troponin I High Sensitivity 14.1 pg/ml (0-14)
[2022-02-02 14:06] LABS: Anion Gap 18 (3-11); BUN Creatinine Ratio 18.6 (10-20); Blood Urea Nitrogen 13 mg/dl (6-23); Calcium 6.3 mg/dl (8.5-10.1); Carbon Dioxide 28 mmol/L (21-32); Chloride 95 mmol/L (98-107); Creatinine Clr Calc Pharmacy 72.1 ml/min; Est GFR (African American) 100.3 ml/min; Est GFR (Non-African American) 86.6 ml/min; Glucose 162 mg/dl (70-99(Fasting)); Potassium 2.6 mmol/L (3.5-5.1); Sodium 141 mmol/L (136-145)
[2022-02-02 14:13] LABS: Alanine Aminotransferase 12 U/L (7-52); Albumin Level 3.7 gm/dl (3.4-5.0); Alkaline Phosphatase 59 U/L (34-104); Aspartate Aminotransferase 22 U/L (13-39); Bilirubin Direct 0.2 mg/dl (0-0.2); Bilirubin,Total 0.6 mg/dl (0.2-1.0); Lipase 172 U/L (11-82); Magnesium < 0.5 mg/dl (1.7-2.4); Total Protein 7.2 gm/dl (6.0-8.3)
--- NOTE | 2022-02-02 14:27 | CT Scan Report ---
CT SCAN OF THE ABDOMEN AND PELVIS WITHOUT IV CONTRAST CLINICAL HISTORY: Lower abdominal pain. Nausea and vomiting. COMPARISON STUDY: Abdominal CT dated 01/05/2022. TECHNIQUE: CT scan of the abdomen and pelvis is performed from the lung bases to the proximal femora. Images are reviewed in the axial, sagittal, and coronal planes. IV contrast was not administered for this examination. Note that the examination is suboptimal without oral and IV contrast. There is str eak artifact from the arms which could not be elevated above the abdomen. A dose lowering technique w as utilized adhering to the principles of ALARA. CT DOSE: 1875.16 mGy.cm FINDINGS: Lung bases: The heart is top normal in size and without pericardial effusion. A calcified granuloma i s seen in the right middle lobe. The lung bases are otherwise clear noting dependent atelectasis. Liver: The unenhanced liver is normal in size, contour, and attenuation. There is no intrahepatic neeru iary ductal dilatation. Gallbladder: Surgically absent noting clips in the gallbladder fossa. Spleen: Normal in size and attenuation. Pancreas: The unenhanced pancreas is moderately atrophic and grossly unremarkable. Adrenal glands: Unremarkable. Kidneys: The unenhanced kidneys demonstrate cortical atrophy and are without hydronephrosis. There ar e no renal calculi identified. A 3.3 cm cyst is noted on the left. Abdominal vasculature: There is moderate of a sclerotic calcification of the abdominal aorta. There i s a 3.2 cm infrarenal abdominal aortic aneurysm. Bowel: There is no bowel obstruction. There is mild infiltration identified around the left colon. Th e appendix is well-visualized and normal. Asymmetric rectal wall thickening suggested on 01/05/2022 is no longer appreciated. Peritoneum: There is no intraperitoneal free air or abdominal ascites. There is evidence of previous ventral hernia repair. Lymphadenopathy: None. Pelvic viscera: The bladder and uterus are normal as visualized. A 4.2 cm simple cystic lesion in the left adnexa is unchanged and likely related to the left ovary. Skeletal structures: The skeletal structures are osteopenic. There is moderate lumbosacral spondylosi s. No lytic or blastic lesions are seen. IMPRESSION: 1. There is faint infiltration identified around the left colon. Correlate clinically for evidence of a mild nonspecific colitis. 2. No bowel obstruction. 3. There is a 3.2 cm infrarenal abdominal aortic aneurysm. 4. Additional findings as above. ACT 112: Negative or not required by law. Electronically signed by: Jesus Galan M.D. 02/02/2022 2:25 PM
[2022-02-02] MEDS ORDERED: POTASSIUM CHLORIDE / WTR 10 MEQ/100 ML PLCT IV ONE (14:32)
--- NOTE | 2022-02-02 14:35 | CT Scan Report ---
HEAD CT NONCONTRAST CT DOSE: HISTORY: headache post vomiting TECHNIQUE: Multiaxial CT images of the head were performed without the use of intravenous contrast. A utomated exposure control was utilized for this study. A dose lowering technique was utilized adheri ng to the principles of ALARA. Comparison: Head CT 10/31/2008. Findings: The paranasal sinuses and mastoid air cells are clear. The calvarium and skull base are int act. There is no mass, hematoma, midline shift, acute infarct. White matter hypodensity is nonspecifi c but suggestive of microvascular ischemic change. The ventricles and sulci demonstrate mild age-rela nimisha involutional changes. Impression: No acute intracranial abnormality. Atrophy and microvascular ischemic changes. ACT 112: Negative or not required by law. Electronically signed by: Jarod Cuello M.D. 02/02/2022 2:34 PM
[2022-02-02] MEDS: MAGNESIUM SULFATE / D5W 1 GM/100 ML BAG IV SCH ×5 (14:43→23:15)
--- NOTE | 2022-02-02 15:04 | History & Physical Report ---
Date of Service February 02, 2022 Assessment & Plan (1) Atrial fibrillation with RVR: Plan: - Present on initial eval in ED with HR 150s, now HR 60-70s after 5 mg IV Lopressor x2 in ED. - 2/2 hypomagnesia and hypokalemia in the setting of 6 weeks of ongoing diarrheal illness. - Will start patient on 12.5 mg metoprolol BID for now, with IV Lopressor as needed overnight for HR >120 - Will order K and Mg replacement to get K of 4.0, Mg 2.0. - Echo in AM. (2) Hypomagnesemia: Plan: - < 0.5, ongoing n/v/d x6 weeks. - IV replacement on admission with mag ox BID ordered. (3) Hypokalemia: Plan: - 2.6, despite being on potassium supplement at home. - Depleted 2/2 diarrhea, n/v. - Replete w/ K riders on admission and then KCL 20 mg TID. - BMP in AM. (4) Nausea vomiting and diarrhea: Plan: - Patient seen in our ED 01/05 for 2 weeks plus of nonbloody diarrhea. At the time she was without leukocytosis, stool PCR negative for all, including C. difficile. - Since then she has continued to have diarrhea 23 times a day with 2 or 3 days of nausea, nonbloody vomiting, and continued diarrhea and worsening weakness. - Has a history of chronic diarrhea colonoscopy in 2019 with several polyps removed, biopsy for microscopic colitis performed, symptoms seemingly resoled w/ healthier diet and probiotic. - We will repeat stool bio fire PCR today. - Supportive care for now, fluids and electrolyte replacement with anti-emetics prn. - Low suspicion for C. difficile, however will defer on Imodium and other antidiarrheals until stool bio fire repeated. (5) GERD (gastroesophageal reflux disease): Plan: - Continue PPI, switch from Nexium to hospital formulary. (6) Chronic venous insufficiency: Plan: - Encourage compression stockings, elevate legs. (7) Hypercholesterolemia: Plan: - Declines statin. (8) High anion gap metabolic acidosis: Plan: - With ketones in UA, 6+ weeks of poor appetite, likely due to starvation ketoacidosis. Plan - Admit to PCU. - SCDs, starting on Eliquis for VTE ppx given new onset a fib. - Full Code. History of Present Illness Chief Complaint: Nausea, vomiting, diarrhea x 2-3 days Primary Care Provider: Gareth Huitron MD Nani Henriquez is a 71-year-old female the past medical history significant for hyperlipidemia, venous insufficiency, GERD, arthritis, who is presenting today with abdominal pain and ongoing diarrhea. She is evaluated in our ED on 01/05 for 2 weeks of diarrhea. At that point she was given IV fluids and potassium replacement and discharged home. She notes that her diarrhea has persisted over the last 6 weeks despite taking Imodium, and over the last 2 or 3 days she has been nauseous and vomiting several times a day. She does not have any fever, chills, abdominal pain, blood in her stool or blood in her vomit. She feels very weak overall as she has only been eating yogurt and bananas ever the past few weeks but is unable to tolerate much else. She had a severe headache after vomiting today, otherwise has been without any headaches or neck pain. He has had cramping in her calves and feels too weak to ambulate, but denies any falls. She last had a colonoscopy in 2019 for evaluation of chronic diarrhea. Several polyps removed, biopsy was done for microscopic colitis. At that time the diarrhea resolved when patient adapted healthier diet and started taking a probiotic. Upon presentation to the ED, patient had an HR in the 224473d, found to be in A. fib RVR. Received 2 doses of IV Lopressor with HR now 6070s. Vital signs otherwise stable and within normal limits. Labs remarkable for potassium 2.6 and magnesium <0.5, calcium 6.3, AG 18 with ketones in urine. Troponin minimally elevated at 14.1, lipase 172. Hemoglobin 11, decreased from 1 month ago which it was 13.7. CT A/P shows faint infiltration identified around the left colon suggestive of a nonspecific colitis, there is no evidence of bowel obstruction or other acute infectious/inflammatory process. Allergies Allergy/AdvReac Type Severity Reaction Status Date / Time gatifloxacin Allergy Severe redness of Verified 10/01/21 08:53 the eye (zymaxid) Penicillins Allergy Severe "ALMOST Verified 10/01/21 08:53 " venom-wasp Allergy Severe Anaphylaxis Verified 10/01/21 08:53 house dust Allergy Intermediate itchy Verified 10/01/21 08:53 house dust mite Allergy Intermediate itchy Verified 10/01/21 08:53 mold Allergy Intermediate sinus Verified 10/01/21 08:53 congestion ragweed pollen Allergy Intermediate itchy Verified 10/01/21 08:53 aspirin Allergy Unknown throat Verified 10/01/21 08:53 swelling (as a child) bee venom protein (honey bee) Allergy Unknown SWELLING Verified 10/01/21 08:53 AND SOB Sulfa (Sulfonamide Allergy Unknown HIVES Verified 10/01/21 08:53 Antibiotics) glue Allergy Intermediate irritation Uncoded 10/01/21 08:53 on skin when using in the past EYE DROPS WITH SULFATE Allergy Unknown HIVES Uncoded 10/01/21 08:53 FRESHLY CUT GRASS Allergy Unknown SHORTNESS Uncoded 10/01/21 08:53 OF BREATH Home Medications Medication Instructions Recorded Confirmed Type acetaminophen 650 mg 2 tab PO Q12H PRN Pain 04/25/18 02/02/22 History tablet,extended release (Tylenol Arthritis Pain) cholecalciferol (vitamin D3) 125 5,000 unit PO QPM 04/25/18 02/02/22 History mcg (5,000 unit) tablet (Vitamin D3) potassium gluconate 595 mg (99 mg) 1 tab PO QAM 04/25/18 02/02/22 History tablet,extended release turmeric 400 mg capsule 1 tab PO BID 04/25/18 02/02/22 History vitamin E 268 mg (400 unit) capsule 400 unit PO QAM 04/25/18 02/02/22 History ascorbic acid (vitamin C) 500 mg 500 mg PO QAM 11/29/19 02/02/22 History chewable tablet (Vitamin C) vitamin B complex 1 tab PO DAILY 10/01/21 02/02/22 History esomeprazole magnesium 40 mg 40 mg PO QAM #30 caps 10/17/21 02/02/22 Rx capsule,delayed release (Nexium) Past Med/Surg History Medical History Chronic back pain Cyst, kidney, acquired pt denies GERD (gastroesophageal reflux disease) H/O irritable bowel syndrome History of type 2 diabetes mellitus Obesity Osteoarthritis Scarlet fever hx (1968) Stress incontinence Varicose vein of leg Surgical History H/O tubal ligation History of cataract surgery RIGHT AND LEFT History of cholecystectomy OPEN History of colonoscopy History of herniorrhaphy LEFT INGUINAL HERNIA Hx of tonsillectomy Family History Sister Ovarian cancer Other Breast cancer Gallbladder disease Heart disease Hypercholesteremia Hypertension IBS (irritable bowel syndrome) No family history of adverse response to anesthesia Osteoporosis Seizure Thyroid disease Denies family history of Prostate cancer Myocardial infarction Colorectal cancer Social History Smoking Status: Former smoker Tobacco Type: Cigarettes Second Hand Exposure: No; Do You Dip or Chew Tobacco: No; Tobacco Cessation Education Requested by Patient: No Hx Alcohol Use: No Hx Substance Use: No Preferred Language: Kyrgyz Communication Ability: Effective Evp Required: No Beliefs That Will Affect Care: None marital status: Current Living Situation: Alone Current Living Situation Comment: friend current occupational status: retired Other Information That Helps Us Care for You: No Feels Safe at Home: Yes Safety Concerns: Feels Safe At This Time Childhood Exposure to Second-Hand Smoke: Yes Physical Activity Frequency: Does not Exercise Seatbelt Use: always Assistive Devices: Denture - Upper, Denture - Lower and Glasses Review of Systems Review of Systems: Constitutional: Generalized weakness, fatigue, anorexia for the past week+; no fever/chills, myalgias, night sweats Eyes: No diplopia, no worsening or blurred vision ENT: normal hearing, no trouble swallowing Respiratory: No cough, sputum, dyspnea at rest or on exertion Cardiovascular: No chest pain, tightness or palpitations Abdomen: Nausea, vomiting x3 days with 6 weeks of loose stools, hematochezia, melena, constipation : Denies dysuria, hematuria, increased urgency/frequency, urinary retention Musculoskeletal: No joint pain, calf pain, swelling Neurologic: No weakness, numbness/tingling, or balance problems Psychiatric: No anxiety or depression Skin: No rash or itch Physical Exam Physical Exam: General: awake, alert, with pallor and appears fatigued but no acute distress Head: Normocephalic, atraumatic ENT: PERRL, EOMI, no pharyngeal exudate, mucous membranes moist Chest: Clear to auscultation, on room air, no adventitious breath sounds Cardiac: Regular rate and rhythm, no murmur, no JVD, normal peripheral pulses, good capillary refill Abdominal: NABS x 4 quadrants, soft, nontender to palpation, no rebound, guarding or tenderness Extremities: Normal inspection, no peripheral edema or erythema, calfs nontender to palpation Psych: Normal mood and affect Neuro: AAO x 3, strength intact bilaterally and rated 5/5, no motor deficits, speech is clear, no peripheral sensory deficits Skin: no rash or erythema Results & Data Results & Data ([facility]) Vital Signs (Past 12 Hours) Vital Signs Temp Pulse Resp BP Pulse Ox O2 Del Method O2 Flow Rate 02/02/22 13:41 95 Nasal Cannula 2 02/02/22 13:40 86 L Room Air 02/02/22 13:31 157 H 02/02/22 13:19 36.9 C 136 H 26 H 151/99 H 99 Room Air Laboratory Results Abnormal lab results 02/02/22 02/02/22 02/02/22 Range/Units 13:18 13:18 13:18 RBC 3.53 L (3.93-5.22) M/uL Hgb 11.0 L (12.0-16.0) g/dl Hct 32.3 L (34.1-44.9) % Neut # (Auto) 8.53 H (1.4-6.5) K/uL Lymph # (Auto) 0.58 L (1.2-3.4) K/uL Immature Gran # (Auto) 0.07 H (0.00-0.02) K/uL PT 19.3 H (9.0-12.0) Seconds INR 1.9 H (0.9-1.1) APTT 33.3 H (21.0-31.0) Seconds Potassium 2.6 L (3.5-5.1) mmol/L Chloride 95 L (98-107) mmol/L Anion Gap 18 H (3-11) Glucose 162 H (70-99(Fasting)) mg/dl Calcium 6.3 L (8.5-10.1) mg/dl Magnesium < 0.5 L* (1.7-2.4) mg/dl Troponin I High Sens 14.1 H D (0-14) pg/ml Lipase 172 H (11-82) U/L Diagnostic Findings Abdomen/Pelvis CT 02/02/22 13:25 CT SCAN OF THE ABDOMEN AND PELVIS WITHOUT IV CONTRAST CLINICAL HISTORY: Lower abdominal pain. Nausea and vomiting. COMPARISON STUDY: Abdominal CT dated 01/05/2022. TECHNIQUE: CT scan of the abdomen and pelvis is performed from the lung bases to the proximal femora. Images are reviewed in the axial, sagittal, and coronal planes. IV contrast was not administered for this examination. Note that the examination is suboptimal without oral and IV contrast. There is streak artifact from the arms which could not be elevated above the abdomen. A dose lowering technique was utilized adhering to the principles of ALARA. CT DOSE: 1875.16 mGy.cm FINDINGS: Lung bases: The heart is top normal in size and without pericardial effusion. A calcified granuloma is seen in the right middle lobe. The lung bases are otherwise clear noting dependent atelectasis. Liver: The unenhanced liver is normal in size, contour, and attenuation. There is no intrahepatic biliary ductal dilatation. Gallbladder: Surgically absent noting clips in the gallbladder fossa. Spleen: Normal in size and attenuation. Pancreas: The unenhanced pancreas is moderately atrophic and grossly unremarkable. Adrenal glands: Unremarkable. Kidneys: The unenhanced kidneys demonstrate cortical atrophy and are without hydronephrosis. There are no renal calculi identified. A 3.3 cm cyst is noted on the left. Abdominal vasculature: There is moderate of a sclerotic calcification of the abdominal aorta. There is a 3.2 cm infrarenal abdominal aortic aneurysm. Bowel: There is no bowel obstruction. There is mild infiltration identified around the left colon. The appendix is well-visualized and normal. Asymmetric rectal wall thickening suggested on 01/05/2022 is no longer appreciated. Peritoneum: There is no intraperitoneal free air or abdominal ascites. There is evidence of previous ventral hernia repair. Lymphadenopathy: None. Pelvic viscera: The bladder and uterus are normal as visualized. A 4.2 cm simple cystic lesion in the left adnexa is unchanged and likely related to the left ovary. Skeletal structures: The skeletal structures are osteopenic. There is moderate lumbosacral spondylosis. No lytic or blastic lesions are seen. IMPRESSION: 1. There is faint infiltration identified around the left colon. Correlate clinically for evidence of a mild nonspecific colitis. 2. No bowel obstruction. 3. There is a 3.2 cm infrarenal abdominal aortic aneurysm. 4. Additional findings as above. ACT 112: Negative or not required by law. Electronically signed by: Jesus Galan M.D. 02/02/2022 2:[address] 02/02/22 13:[address] DOSE: HISTORY: headache post vomiting TECHNIQUE: Multiaxial CT images of the head were performed without the use of intravenous contrast. Automated exposure control was utilized for this study. A dose lowering technique was utilized adhering to the principles of ALARA. Comparison: Head CT 10/31/2008. Findings: The paranasal sinuses and mastoid air cells are clear. The calvarium and skull base are intact. There is no mass, hematoma, midline shift, acute infarct. White matter hypodensity is nonspecific but suggestive of microvascular ischemic change. The ventricles and sulci demonstrate mild age-related involutional changes. Impression: No acute intracranial abnormality. Atrophy and microvascular ischemic changes. ACT 112: Negative or not required by law. Electronically signed by: Jarod Cuello M.D. 02/02/2022 2:34 PM ECG Additional Comments: Atrial fibrillation with rapid ventricular response Voltage criteria for left ventricular hypertrophy Marked ST abnormality, possible inferolateral subendocardial injury Abnormal ECG When compared with ECG of 25-OCT-2021 09:16, Significant changes have occurred. Code Status & VTE Plan Code Status Full code. Supervising Physician Co-Signing Physician Notes I supervised Jackie Chan PA-C on this admission. I interviewed and examined the patient independently of her. The plan is as written in the note except for any following changes/exceptions: 71yo F w/ past hx of prior GI issues (long-standing diarrhea that resolved) who presents with afib with RVR, low electrolytes, and about 6 weeks of GI symptoms. Unclear onset (somewhat insidious), no major red flag symptoms, but has been getting weaker. Relates some of her GI issues to home stress, but this is improving, yet she is still having enough symptoms to cause undetectable Mg. Will replete aggressively, control her new afib, work that up slightly, and monitor for GI symptoms and treat/investigate as warranted. PG Care Time/CCT Total # of Minutes Spent Total Time Spent with Patient: Total time spent is greater than 50% in coordination of care (as documented) at patient's floor/unit and/or counseling patient: Coding Level of Care Code 65790 Initial Inpt Care Lvl 3 Diagnoses Atrial fibrillation with RVR I48.91 Hypomagnesemia E83.42 Hypokalemia E87.6 Nausea vomiting and diarrhea R11.2; R19.7 GERD (gastroesophageal reflux disease) K21.9 Chronic venous insufficiency I87.2 Hypercholesterolemia E78.00 High anion gap metabolic acidosis E87.29
[2022-02-02] MEDS ORDERED: MAGNESIUM SULFATE / D5W 1 GM/100 ML BAG IV ONE (15:19)
[2022-02-02 15:43] LABS: Appearance Urine Clear (Clear); Bacteria Urine Automated 1+ (Negative); Bilirubin Urine Negative (Negative); Blood Urine Negative (Negative); Color Urine Yellow; Epithelial Cell Urine Auto >30 /lpf (0-5); Glucose Urine UA Negative (Negative); Ketones Urine 3+ (Negative); Leukocyte Esterase Urine Negative (Negative); Nitrite Urine Negative (Negative); Protein Urine 1+ (Negative); Specific Gravity Urine 1.016 (1.000-1.030); Urobilinogen Urine Negative (Negative); pH Urine 5.5 (4.5-7.5)
--- NOTE | 2022-02-02 16:04 | Electrocardiogram Report ---
Test Reason : Blood Pressure : / mmHG Vent. Rate : 147 BPM Atrial Rate : 147 BPM P-R Int : 000 ms QRS Dur : 078 ms QT Int : 336 ms P-R-T Axes : 000 -23 190 degrees QTc Int : 525 ms Poor data quality, interpretation may be adversely affected Atrial fibrillation with rapid ventricular response Left ventricular hypertrophy with repolarization abnormality Abnormal ECG When compared with ECG of 25-OCT-2021 09:16, HR has increased by 71 bpm Sinus rhythm no longer present Confirmed by Preet Motley ([id number]) on 02/02/2022 4:04:02 PM Referred By: REFERRED SELF Confirmed By:Preet Motley
[2022-02-02] MEDS: LACTATED RINGER'S 1,000 ML IV SCH (16:26)
[2022-02-02] MEDS ORDERED: ALUMINUM/MAGNESIUM SUSP 30 ML UDC PO PRN (17:39)
[2022-02-02] MEDS ORDERED: METOPROLOL TARTRATE 1 MG/ML VIAL IV PRN (17:39)
[2022-02-02] MEDS ORDERED: ONDANSETRON INJ 2 MG/ML 2 ML VIAL IV PRN (17:39)
[2022-02-02] MEDS ORDERED: POLYETHYLENE (MIRALAX) 17 GM PACK PO PRN (17:39)
[2022-02-02] MEDS: MAGNESIUM OXIDE 400 MG TAB PO SCH (20:36)
[2022-02-02] MEDS: APIXABAN 5 MG TABLET PO SCH (20:37)
[2022-02-02] MEDS: METOPROLOL TARTRATE 25 MG TAB PO SCH (20:37)
[2022-02-02] MEDS ORDERED: POTASSIUM CHLORIDE CRTAB 20 MEQ TABCR PO SCH (21:00)
[2022-02-02] MEDS ORDERED: CHOLECALCIFEROL 5,000 UNITS 125 MCG TAB PO SCH (21:00)
[2022-02-02] MEDS ORDERED: STAT IV STA (21:29)
[2022-02-02 21:38] LABS: BUN Creatinine Ratio 17.9 (10-20); Calcium 6.7 mg/dl (8.5-10.1); Creatinine Clr Calc Pharmacy 89.3 ml/min; Est GFR (Non-African American) 93.2 ml/min; Potassium 2.8 mmol/L (3.5-5.1)
[2022-02-02] MEDS ORDERED: CALCIUM GLUCONATE 10% 3,000 MG in DEXTROSE 5% 100 ML IV ONE (21:45)
[2022-02-03] MEDS: MAGNESIUM SULFATE / D5W 1 GM/100 ML BAG IV SCH ×3 (01:25→05:05)
[2022-02-03] MEDS: LACTATED RINGER'S 1,000 ML IV SCH ×3 (02:22→18:12)
[2022-02-03 07:15] LABS: Troponin I High Sensitivity 53.5 pg/ml (0-14)
[2022-02-03 07:27] LABS: Ferritin 471.1 ng/ml (8-388)
[2022-02-03 07:31] LABS: BUN Creatinine Ratio 11.8 (10-20); Calcium 7.4 mg/dl (8.5-10.1); Creatinine Clr Calc Pharmacy 98.3 ml/min; Est GFR (African American) 111.3 ml/min; Est GFR (Non-African American) 96.1 ml/min; Magnesium 2.5 mg/dl (1.7-2.4); Potassium 2.7 mmol/L (3.5-5.1)
[2022-02-03] MEDS: APIXABAN 5 MG TABLET PO SCH ×2 (07:55→22:01)
[2022-02-03] MEDS: PANTOprazole 40 MG TAB PO SCH (07:56)
[2022-02-03] MEDS: METOPROLOL TARTRATE 25 MG TAB PO SCH ×2 (07:56→22:00)
[2022-02-03] MEDS: MAGNESIUM OXIDE 400 MG TAB PO SCH (07:56)
[2022-02-03] MEDS ORDERED: POTASSIUM CHLORIDE CRTAB 20 MEQ TABCR PO STA (07:58)
--- NOTE | 2022-02-03 08:11 | Hospitalist Progress Note ---
Date of Service February 03, 2022 Assessment & Plan (1) Atrial fibrillation with RVR: (2) Hypomagnesemia: (3) Hypokalemia: (4) Nausea vomiting and diarrhea: (5) GERD (gastroesophageal reflux disease): (6) Chronic venous insufficiency: (7) Hypercholesterolemia: (8) High anion gap metabolic acidosis: Plan Nani is a 71 year old female with history of GERD, IBS, T2DM, HLD, OA, venous insufficiency, and Scarlet Fever (1968) who presented for evaluation of ongoing diarrhea (6 wks +). She had been evaluated 01/05 and found to have a negative stool panel at this time. At this visit, she was found to be in AFib RVR with hypokalemia and hypomagnesemia. Patient was admitted for management of new atrial fibrillation in the setting of electrolyte abnormalities. Chronic nausea/Diarrhea (a/w Hypomagnesemia & Hypokalemia) - Ddx: Hypervitaminosis, functional diarrhea, malnutrition, secretory diarrhea, allergy (casein, celiac, etc), microscopic colitis, infection SIBO - Patient seen in our ED 01/05 for 2 weeks of worsening nonbloody diarrhea w/o leukocytosis, stool PCR negative for all, including C. difficile at this time - Symptoms significantly worsened by stressors - No constipation on CT, non-specific colitis - CTAP: Faint infiltration identified around the left colon. Correlate clinically for evidence of a mild nonspecific colitis. No bowel obstruction. - CT Head: No acute intracranial abnormality. Atrophy and microvascular ischemic changes. - Negative colonoscopy 2019, biopsy negative for microscopic colitis - Significant weight loss (40 lbs in last year) - Diet of primarily yogurt and bananas - High INR (malnutrition?) - New incontinence (continent at home) --- Repeat Stool BioFire negative --- Imodium and antidiarrheals held --- Vitamins held (Vit C, Vit D, Vit E, Vit B) d/t possible association w/ nausea/diarrhea --- Consult GI: Possible EGD/Colonoscopy, Celiac workup ordered --- Continue LR 125 ml/hr Malnutrition (Hypomagnesemia/Hypokalemia) - Diet of primarily yogurt and bananas (~ 1 year) - Significant weight loss (40 lbs in last year) - Ordered K and Mg replacement to get K of 4.0, Mg 2.0. - Hypokalemic despite ongoing K supplement at home - Electrolyte depletion 2/2 chronic diarrhea and recent emesis --- Repleted Potassium, recheck BMP repleted --- Given 15 mg Vitamin K d/t low INR, likely 2/2 malnutrition Atrial fibrillation with RVR - Present on initial eval in ED with HR 150s, now HR 60-70s after 5 mg IV Lopressor x2 in ED. - Considered 2/2 hypomagnesia and hypokalemia in the setting of 6 weeks of ongoing diarrheal illness - Patient started on 12.5 mg metoprolol BID, with IV Lopressor PRN for HR >120 --- Echo: EF 60-65%, mild mitral and tricuspid regurgitation --- Tele: Sinus in 60-70s --- Eliquis 5 mg PO BID started --- Continue Metoprolol 12.5 mg PO BID GERD (gastroesophageal reflux disease) - Continue PPI, switch from Nexium to hospital formulary. --- Consider EGD, pending GI evaluation. Chronic venous insufficiency: - Encourage compression stockings, elevate legs Hypercholesterolemia: - Declines statin High anion gap metabolic acidosis - With ketones in UA, 6+ weeks of poor appetite, likely due to starvation ketoacidosis Bacteruria - Gram negative bacilli noted on urine culture - Patient remains asymptomatic, thus no Abx will be started at this time FEN: Liquid diet, LR 125 mL/hr Code status: Full Code DVT ppx: SCD, starting Eliquis 5 mg PO (therapeutic, new onset AFib) Isolation: None Dispo:PCU/tele Admission and Anticipated Discharge Date Admission Date: February 02, 2022 Supervising Physician Co-Signing Physician Notes I personally examined the patient and verified all zamora points of history and exam, discussed case, and agree with decision making with Dr Aguilar no acute complaints. ongoing as above. weight loss and diarrhea vitals noted nad heent nc at mmm breathing unlabored no accessory muscles good effort skin no rashes no pallor or icterus Chronic diarrheadifferential fairly broad. Could be something functional such as IBS diarrhea predominant worsened by anxietyin which case the malnutrition would be secondary to very limited p.o. intake, differential also includes celiacwe will wait and see if GI is planning on an EGD if so small bowel eval and biopsy, if not send serum titers; consider chronic infectious such as cryptosporidia or Giardia; does not appear to be constipation with overflownot any feces noted on visual review of CT scan; consider microscopic colitisanticipate colonoscopy; IBD seems extremely unlikely given prior scope, as well as symptoms not including a lot of cramping or bleeding; while raresomething even such as carcinoid should be considered if the above work-up has no yield Hypokalemia/hypomagnesemiaeither related to diarrhea, or if diarrhea ends up being IBSD with severe anxiety, then the electrolyte disturbances may be due to malnutrition due to severely restricted p.o. intake Malnutritionas above, severe calorie given her 40 pounds of weight loss over the last year surprisingly only seems to be mild protein. Suspect high INR related to poor p.o. intakegive vitamin K and follow for correction. A. fib/RVRcorrect mag and K, rate now controlled. Would likely benefit from long-term anticoagulation Otherwise as above Agueda Cardoza is a 71 year old female with history of GERD, IBS, T2DM, HLD, OA, venous insufficiency, and Scarlet Fever (1968) who presented for evaluation of ongoing diarrhea (6 wks +). She had been evaluated 01/05 and found to have a negative stool panel at this time. At this visit, she was found to be in AFib RVR with hypokalemia and hypomagnesemia. Patient was admitted for management of new atrial fibrillation in the setting of electrolyte abnormalities. 02/03: Patient states today that while her nausea is improved since presentation, her diarrhea is ongoing. She notes that she has had diarrhea (waxing and waning) over the last year. She notes that her symptoms started whenever a close friend , and drastically worsened 6 weeks ago when she had to give up her cat. Patient notes that at baseline she is very nauseated, and she has learned to control this by only eating 2-3 bananas and a half cup of yogurt each day. She states that over the last year she last lost 40+ lbs. She notes that her stools are normally 'luis' and orange in color with occasional ivette colored stools. They are primarily liquid in nature. She denies any hematochezia or hematemesis. She notes that over the last 2-3 months she has had occasional epigastric pain that is not reproducible with palpation. She denies any heartburn or chest pains. She is not experiencing dyspnea. She notes mild headaches that have been ongoing over the last year, but she has not treated them. Patient disclosed concern regarding her mood. She notes that since her friend , despite 5 members of her friend group still being alive, she has felt significantly more depressed and has lost interest in doing things she used to enjoy. Patient denies homicidal ideations, but endorses thoughts that she would be better off . Patient denies having a plan, but states that this past year has felt incredibly stressful without her friend and now w/o her cat. She believes that her diarrhea is worsened by stressful events in her life. Patient notes that she is now having episodes of fecal incontinence, which were not her baseline prior to presentation. Review of Systems Review of Systems: As per HPI Physical Exam Physical Exam: Gen: NAD, alert, interactive HEENT: Supple, no LAD, no thyromegaly, no JVD Resp:Non-labored, no wheezing/rhonchi/rales, CTAB CV:RRR, normal S1/S2, no M/R/G Abd: Soft, non-distended, no TTP, normoactive bowels, no masses Extr: 2+ dp bilaterally, no edema Skin: No rashes lesions or erythema Results & Data Results & Data ([facility]) Vital Signs (Past 12 Hours) Vital Signs Temp Pulse Resp BP Pulse Ox O2 Del Method 02/03/22 07:27 36.6 C 69 18 150/72 H 91 Room Air 02/03/22 03:08 36.7 C 69 20 139/70 97 Room Air 02/02/22 22:56 36.8 C 58 L 20 138/77 98 Room Air Resident Activity Tracking Resident Involvement: Resident Care Provided Care Provided: Adult Hospital Medicine
[2022-02-03] MEDS: POTASSIUM CHLORIDE / WTR 10 MEQ/100 ML PLCT IV SCH ×3 (08:39→11:04)
[2022-02-03] MEDS ORDERED: TOCOPHERYL, DL-ALPHA 400 UNITS 180 MG CAP PO SCH (09:00)
[2022-02-03] MEDS ORDERED: NON-FORMULARY MEDICATION (Potassium Gluconate 595 mg (99 mg) Tablet Extended Release) PO SCH (09:00)
[2022-02-03] MEDS ORDERED: ASCORBIC ACID 500 MG TAB PO SCH (09:00)
[2022-02-03] MEDS ORDERED: VITAMIN B COMPLEX TAB PO SCH (09:00)
--- NOTE | 2022-02-03 09:51 | Medical Student Progress Note ---
Date of Service February 03, 2022 Assessment & Plan (1) Chronic diarrhea: (2) GERD (gastroesophageal reflux disease): (3) Atrial fibrillation with RVR: (4) Nausea vomiting and diarrhea: (5) Hypokalemia: (6) Hypomagnesemia: (7) High anion gap metabolic acidosis: Plan Chronic Diarrhea - Differentials: IBS-D, malnutrition, secretory (2/2 hormone producing tumor), Celiac disease, chronic infection - Previous ED workup (December): no blood, no inflammatory signs, no infectious agents identified - Colonoscopy (11/2019): non-remarkable except polyps - colonoscopy guidance: every 5 yrs - Association with nausea and headaches Malnutrition (hypokalemia and hypomagnesemia) - Diet: food limited to yogurt and bananas x1 yr - Loss of 40 lbs in one year - Potassium and Magnesium (low: 2.6 and <0.5 mg/dL, respectively). Now taking potassium and magnesium supplements (PO and IV, respectively). Will monitor for change. - INR elevated (1.9 and 1.8). Vitamin K supplementation initiated. Will monitor for change. Atrial Fibrillation with Rapid Ventricular Response - Severe dizziness the day of admission - Ventricular response rate >150 bpm. Given metoprolol X2 5mL. Heart rate now stable and ~60-70s. - Suspect low magnesium/potassium initiated atrial fibrillation Admission and Anticipated Discharge Date Admission Date: February 02, 2022 Supervising Attestation I personally reviewed the medical student's noted. Additional information about history and plan are present in my hospitalist progress noted. ~AQ Subjective Nani Henriquez is a 71 year old female with a pertinent past medical history of GERD, IBS, and HLD who presented in the ED for chronic diarrhea (~1 year). She states that approximately one year ago she started having 2-4 episodes of diarrhea per day with nausea that was exacerbated by a normal diet. She attributes great life stressor to potentially initiating these bowel changes: of her long-time friend, and her house mate (who eventually moved out). She found that yogurt (1-3 cups, 4 oz each) and bananas (1-3) per day was tolerable; however, she endorses that the diarrhea continued. Additionally, she describes daily headaches and potential migraines that occurred on a daily basis. No medication was taken to alleviate these headaches. She states that she was evaluated for chronic diarrhea (non-infectious and no blood found) in the ED in December, and was given Imodium, which proved ineffective. In the past week, she explains that she felt that the room was spinning for hours at a time and felt as if her condition was declining. This phenomenon lead her to seek attention at the ED. Today she states that she is okay and does not have any palpitations, chest pain/discomfort, headaches, dizziness, or nausea. Review of Systems Review of Systems: See HPI. Physical Exam Constitutional: Sitting comfortably in the bed. In no acute distress. Respiratory: Lungs are clear to auscultation bilaterally No rales, wheezes, o r rhonchi. Conversational without SOB. Cardiovascular: RRR. No RMG. Gastrointestinal (Abdomen): Soft, nondistended. Non-tender. No pain to palpitation x4 quadrants. Results & Data ([facility] [place]) Vital Signs (Past 12 Hours) Vital Signs Temp Pulse Resp BP Pulse Ox O2 Del Method 02/03/22 07:27 36.6 C 69 18 150/72 H 91 Room Air 02/03/22 03:08 36.7 C 69 20 139/70 97 Room Air 02/02/22 22:56 36.8 C 58 L 20 138/77 98 Room Air Laboratory Results Drawn at 06:08 Hypokalemia: 2.7 mg/dL Hypomagnesemia: 2.5 mg/dL Drawn at 09:31 INR: 1.8
[2022-02-03 10:04] LABS: INR 1.8 (0.9-1.1); Prothrombin Time 18.2 Seconds (9.0-12.0)
[2022-02-03] MEDS: ACETAMINOPHEN 325 MG TAB PO PRN (10:09)
[2022-02-03] MEDS ORDERED: PHYTONADIONE 5 MG TAB PO STA (10:39)
--- NOTE | 2022-02-03 12:59 | XCELERA ---
[id number]
[2022-02-03 14:14] LABS: Adenovirus F 40/41 PCR Not Detected (NotDetected); Astrovirus PCR Not Detected (NotDetected); Campylobacter PCR Not Detected (NotDetected); Cryptosporidium PCR Not Detected (NotDetected); Cyclospora cayetanensis PCR Not Detected (NotDetected); Entamoeba histolytica PCR Not Detected (NotDetected); Enteroaggregative E.coli(EAEC) Not Detected (NotDetected); Enteropathogenic E.coli (EPEC) Not Detected (NotDetected); Enterotoxigenic E.coli (ETEC) Not Detected (NotDetected); Giardia lamblia PCR Not Detected (NotDetected); Norovirus GI/GII PCR Not Detected (NotDetected); Plesiomonas shigelloides PCR Not Detected (NotDetected); Rotavirus A PCR Not Detected (NotDetected); Salmonella PCR Not Detected (NotDetected); Sapovirus PCR Not Detected (NotDetected); Shiga-like Toxin E.coli (STEC) Not Detected (NotDetected); Shigella/Enteroinvasive E.coli Not Detected (NotDetected); Vibrio cholerae PCR Not Detected (NotDetected); Vibrio species PCR Not Detected (NotDetected); Yersinia enterocolitica PCR Not Detected (NotDetected)
[2022-02-03 15:42] LABS: Albumin Level 3.2 gm/dl (3.4-5.0); BUN Creatinine Ratio 8.1 (10-20); Calcium 7.9 mg/dl (8.5-10.1); Creatinine Clr Calc Pharmacy 80.9 ml/min; Est GFR (African American) 104.4 ml/min; Est GFR (Non-African American) 90.1 ml/min; Magnesium 2.2 mg/dl (1.7-2.4); Potassium 3.5 mmol/L (3.5-5.1)
[2022-02-03] MEDS ORDERED: STAT IV STA (17:46)
[2022-02-03] MEDS ORDERED: POTASSIUM CHLORIDE PWD 20 MEQ PACK PO ONE ×2 (18:00→23:00)
[2022-02-03] MEDS ORDERED: CALCIUM GLUCONATE 10% 1,000 MG in DEXTROSE 5% 50 ML IV ONE (18:00)
--- NOTE | 2022-02-03 18:47 | Billing Data ---
Date of Service February 03, 2022 Coding Level of Care Code 10406 Subseq Hosp Care Lvl 3
[2022-02-04] MEDS: LACTATED RINGER'S 1,000 ML IV SCH ×3 (04:45→18:14)
--- NOTE | 2022-02-04 06:51 | Hospitalist Progress Note ---
Date of Service February 04, 2022 Assessment & Plan (1) Atrial fibrillation with RVR: (2) Hypomagnesemia: (3) Hypokalemia: (4) Nausea vomiting and diarrhea: (5) GERD (gastroesophageal reflux disease): (6) Chronic venous insufficiency: (7) Hypercholesterolemia: (8) High anion gap metabolic acidosis: Plan Nani is a 71 year old female with history of GERD, IBS, T2DM, HLD, OA, venous insufficiency, and Scarlet Fever (1968) who presented for evaluation of ongoing diarrhea (6 wks +). She had been evaluated 01/05 and found to have a negative stool panel at this time. At this visit, she was found to be in AFib RVR with hypokalemia and hypomagnesemia. Patient was admitted for management of new atrial fibrillation in the setting of electrolyte abnormalities. Chronic nausea/Diarrhea (a/w Hypomagnesemia & Hypokalemia) - Ddx: Hypervitaminosis, functional diarrhea, malnutrition, secretory diarrhea, allergy (casein, celiac, etc), microscopic colitis, infection SIBO - Patient seen in our ED 01/05 for 2 weeks of worsening nonbloody diarrhea w/o leukocytosis, stool PCR negative for all, including C. difficile at this time - Symptoms significantly worsened by stressors - No constipation on CT, non-specific colitis - CTAP: Faint infiltration identified around the left colon. Correlate clinically for evidence of a mild nonspecific colitis. No bowel obstruction. - CT Head: No acute intracranial abnormality. Atrophy and microvascular ischemic changes. - Negative colonoscopy 2019, biopsy negative for microscopic colitis - Significant weight loss (40 lbs in last year) - Diet of primarily yogurt and bananas - High INR (malnutrition?) - New incontinence (continent at home) - Repeat Stool BioFire negative - Imodium and antidiarrheals held - Vitamins held (Vit C, Vit D, Vit E, Vit B) d/t possible association w/ nause a/diarrhea --- Celiac lab panel pending --- GI Recommending outpatient workup in 1-2 weeks w/ EGD and Colonoscopy Malnutrition (Hypomagnesemia/Hypokalemia) - Diet of primarily yogurt and bananas (~ 1 year) - Significant weight loss (40 lbs in last year) - Ordered K and Mg replacement to get K of 4.0, Mg 2.0. - Hypokalemic despite ongoing K supplement at home - Electrolyte depletion 2/2 chronic diarrhea and recent emesis - Given 15 mg Vitamin K d/t low INR, likely 2/2 malnutrition --- Repleted Mg and Calcium --- INR improved Atrial fibrillation with RVR - Present on initial eval in ED with HR 150s, now HR 60-70s after 5 mg IV Lopressor x2 in ED. - Considered 2/2 hypomagnesia and hypokalemia in the setting of 6 weeks of ongoing diarrheal illness - Patient started on 12.5 mg metoprolol BID, with IV Lopressor PRN for HR >120 - Echo: EF 60-65%, mild mitral and tricuspid regurgitation --- Tele: Sinus in 60-70s --- Continue Eliquis 5 mg PO BID --- Continue Metoprolol 12.5 mg PO BID GERD (gastroesophageal reflux disease) - Continue PPI, switch from Nexium to hospital formulary. Chronic venous insufficiency: - Encourage compression stockings, elevate legs Hypercholesterolemia: - Declines statin High anion gap metabolic acidosis - With ketones in UA, 6+ weeks of poor appetite, likely due to starvation ketoacidosis Bacteruria - Gram negative bacilli noted on urine culture - Patient remains asymptomatic, thus no Abx will be started at this time FEN: Regular Code status: Full Code DVT ppx: Eliquis 5 mg PO (therapeutic, new onset AFib) Isolation: None Dispo:PCU/tele, anticipate d/c tomorrow Admission and Anticipated Discharge Date Admission Date: February 02, 2022 Supervising Physician Co-Signing Physician Notes I personally examined the patient and verified all zamora points of history and exam, discussed case, and agree with decision making with Dr Aguilar Work-up underway. Feels a little bit better. No new complaints. vitals noted nad heent nc at mmm breathing unlabored no accessory muscles good effort skin no rashes no pallor or icterus Chronic diarrheadifferential fairly broad. Could be something functional such as IBS diarrhea predominant worsened by anxietyin which case the malnutrition would be secondary to very limited p.o. intake, differential also includes celiacwe will wait and see if GI is planning on an EGD if so small bowel eval and biopsy, if not send serum titers; consider chronic infectious such as cryptosporidia or Giardia; does not appear to be constipation with overflownot any feces noted on visual review of CT scan; consider microscopic colitisanticipate colonoscopy; IBD seems extremely unlikely given prior scope, as well as symptoms not including a lot of cramping or bleeding; while raresomething even such as carcinoid should be considered if the above work-up has no yield. Currently most of work-up is still pending Hypokalemia/hypomagnesemiaeither related to diarrhea, or if diarrhea ends up being IBSD with severe anxiety, then the electrolyte disturbances may be due to malnutrition due to severely restricted p.o. intake. K4.1, mag 1.6 today Malnutritionas above, severe calorie given her 40 pounds of weight loss over the last year surprisingly only seems to be mild protein. Suspect high INR related to poor p.o. intakegave vitamin K and corrected to 1.3 A. fib/RVRcorrect mag and K, rate now controlled. Would likely benefit from long-term anticoagulation Otherwise as above Agueda Cardoza is a 71 year old female with history of GERD, IBS, T2DM, HLD, OA, venous insufficiency, and Scarlet Fever (1968) who presented for evaluation of ongoing diarrhea (6 wks +). She had been evaluated 01/05 and found to have a negative stool panel at this time. At this visit, she was found to be in AFib RVR with hypokalemia and hypomagnesemia. Patient was admitted for management of new atrial fibrillation in the setting of electrolyte abnormalities. 02/04: Patient appears comfortable. She states that her diarrhea is improved, prior to coming in she was having 6-7 episodes a day and now she is having 3-4. She denies any abdominal pain today. She feels as though she is having an increased amount of gas. She has been consuming her liquid diet without difficulty. She is enjoying the raspberry popsicles. Patient relays that her bowel movements are often random and witout warning, they are not proceeded by abdominal pain or cramping. She denies any chest pain, palpitations, or dyspnea. 0945 Discussed patient's case with GI PRIYANKA Pineda who is recommending outpatient EGD/colonoscopy in 1-2 wks. Tele: NSR 60-70s Review of Systems Review of Systems: See HPI. Physical Exam Physical Exam: Gen: NAD, alert, interactive HEENT: Supple, no LAD, no thyromegaly, no JVD Resp:Non-labored, no wheezing/rhonchi/rales, CTAB CV:RRR, normal S1/S2, no M/R/G Abd: Soft, non-distended, no TTP, normoactive bowels, no masses Extr: 2+ dp bilaterally, no edema Skin: No rashes lesions or erythema Results & Data Results & Data ([facility]) Vital Signs (Past 12 Hours) Vital Signs Temp Pulse Resp BP Pulse Ox O2 Del Method 02/04/22 03:48 36.6 C 70 18 122/68 94 Room Air 02/03/22 22:51 36.6 C 76 18 127/74 96 02/03/22 19:22 36.8 C 65 18 137/78 96 Room Air Resident Activity Tracking Resident Involvement: Resident Care Provided Care Provided: Adult Hospital Medicine
[2022-02-04] MEDS: APIXABAN 5 MG TABLET PO SCH ×2 (08:24→20:00)
[2022-02-04] MEDS: METOPROLOL TARTRATE 25 MG TAB PO SCH ×2 (08:24→20:00)
[2022-02-04] MEDS: PANTOprazole 40 MG TAB PO SCH (08:25)
[2022-02-04 08:49] LABS: Hematocrit (blood only) 30.5 % (34.1-44.9); Mean Corpuscular Hgb Conc 32.8 g/dL (32.0-36.0); Mean Corpuscular Volume 94.4 fL (80.0-100.0); Mean Platelet Volume 9.6 fL (9.4-12.3); Platelet Count 216 K/uL (130-400); RDW Coefficient of Variation 12.4 % (11.5-14.5); RDW Standard Deviation 43.1 fL (36.4-46.3); Red Blood Count 3.23 M/uL (3.93-5.22)
[2022-02-04 09:08] LABS: Albumin Level 3.1 gm/dl (3.4-5.0); BUN Creatinine Ratio 8.5 (10-20); Bilirubin,Total 0.9 mg/dl (0.2-1.0); Calcium 8.2 mg/dl (8.5-10.1); Creatinine Clr Calc Pharmacy 106.7 ml/min; Est GFR (African American) 114.4 ml/min; Est GFR (Non-African American) 98.7 ml/min; Globulin 3.2 gm/dl (2.5-4.0); INR 1.3 (0.9-1.1); Immunoglobulin A 132.8 mg/dl (70-400); Magnesium 1.6 mg/dl (1.7-2.4); Potassium 4.1 mmol/L (3.5-5.1); Total Protein 6.3 gm/dl (6.0-8.3)
--- NOTE | 2022-02-04 09:59 | Gastrointestinal Consultation ---
Date of Consultation February 04, 2022 Assessment & Plan (1) Atrial fibrillation with rapid ventricular response: (2) Nausea vomiting and diarrhea: Plan 1. Recommend ongoing medical management. 2. Ensure stability from cardiac standpoint. 3. Await Celiac panel as pending. 4. Outpatient EGD/Colonoscopy with Dr. Mathew in 1-2 weeks. Thank you for allowing us to participate in the care of this patient. If you have any questions or concerns, please do not hesitate to contact us. Supervising Physician Co-Signing Physician Notes Agree with PRIYANKA Romo as above Abd: Soft, NT, ND, +BS Decreased diarrhea as per nursing staff Continue current therapy and supportive care. History of Present Illness Reason for Consultation: Chronic diarrhea Requesting Physician: Dr. Aguilar Attending Physician: Shane Sánchez DO History of Present Illness Nani Henriquez is a pleasant 71 y.o. female known to our office for chronic diarrhea. She did have a diagnostic colonoscopy by Dr. Mathew in 2019. Examination was normal and random biopsies negative for microscopic colitis. She states that at that time her symptoms resolved with dietary modification. Approximately 1 year ago, however, she had returning diarrhea. Due to this, states she restricted her diet to only bananas and yogurt although changing diet did not improve her symptoms. She did not attempt dietary advancement and did not seek medical evaluation. Over time, she has sustained an approximate 40 pound weight loss. States her stools are soft to watery in consistency with urgency to defecate and frequency of 6-10 times per day. There is associated abdominal pain and cramping. 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 No bloody stools. No arthralgias, skin rashes, fevers/chills or other complaints. Denies any current chest pain or palpitations. No shortness of breath. On arrival, she was found to have electrolyte abnormalities and was in Afib with RVR. She is now back in a regular rhythm and lytes are being corrected. Biofire was negative. Celiac panel is pending. Denies any NSAID use. Allergies Allergy/AdvReac Type Severity Reaction Status Date / Time gatifloxacin Allergy Severe redness of Verified 10/01/21 08:53 the eye (zymaxid) Penicillins Allergy Severe "ALMOST Verified 10/01/21 08:53 " venom-wasp Allergy Severe Anaphylaxis Verified 10/01/21 08:53 house dust Allergy Intermediate itchy Verified 10/01/21 08:53 house dust mite Allergy Intermediate itchy Verified 10/01/21 08:53 mold Allergy Intermediate sinus Verified 10/01/21 08:53 congestion ragweed pollen Allergy Intermediate itchy Verified 10/01/21 08:53 aspirin Allergy Unknown throat Verified 10/01/21 08:53 swelling (as a child) bee venom protein (honey bee) Allergy Unknown SWELLING Verified 10/01/21 08:53 AND SOB Sulfa (Sulfonamide Allergy Unknown HIVES Verified 10/01/21 08:53 Antibiotics) glue Allergy Intermediate irritation Uncoded 10/01/21 08:53 on skin when using in the past EYE DROPS WITH SULFATE Allergy Unknown HIVES Uncoded 10/01/21 08:53 FRESHLY CUT GRASS Allergy Unknown SHORTNESS Uncoded 10/01/21 08:53 OF BREATH Home Medications Medication Instructions Recorded Confirmed Type acetaminophen 650 mg 2 tab PO Q12H PRN Pain 04/25/18 02/02/22 History tablet,extended release (Tylenol Arthritis Pain) cholecalciferol (vitamin D3) 125 5,000 unit PO QPM 04/25/18 02/02/22 History mcg (5,000 unit) tablet (Vitamin D3) potassium gluconate 595 mg (99 mg) 1 tab PO QAM 04/25/18 02/02/22 History tablet,extended release turmeric 400 mg capsule 1 tab PO BID 04/25/18 02/02/22 History vitamin E 268 mg (400 unit) capsule 400 unit PO QAM 04/25/18 02/02/22 History ascorbic acid (vitamin C) 500 mg 500 mg PO QAM 11/29/19 02/02/22 History chewable tablet (Vitamin C) vitamin B complex 1 tab PO DAILY 10/01/21 02/02/22 History esomeprazole magnesium 40 mg 40 mg PO QAM #30 caps 10/17/21 02/02/22 Rx capsule,delayed release (Nexium) Patient History Medical History Chronic back pain Cyst, kidney, acquired pt denies GERD (gastroesophageal reflux disease) H/O irritable bowel syndrome History of type 2 diabetes mellitus Obesity Osteoarthritis Scarlet fever hx (1967) Stress incontinence Varicose vein of leg Surgical History H/O tubal ligation History of cataract surgery RIGHT AND LEFT History of cholecystectomy OPEN History of colonoscopy History of herniorrhaphy LEFT INGUINAL HERNIA Hx of tonsillectomy Family History Sister Ovarian cancer Other Breast cancer Gallbladder disease Heart disease Hypercholesteremia Hypertension IBS (irritable bowel syndrome) No family history of adverse response to anesthesia Osteoporosis Seizure Thyroid disease Denies family history of Prostate cancer Myocardial infarction Colorectal cancer Social History Smoking Status: Former smoker Tobacco Type: Cigarettes Second Hand Exposure: No; Do You Dip or Chew Tobacco: No; Tobacco Cessation Education Requested by Patient: No Hx Alcohol Use: No Hx Substance Use: No Preferred Language: Greenlandic Communication Ability: Effective Yarn Cleaner Required: No Beliefs That Will Affect Care: None marital status: Current Living Situation: Alone Current Living Situation Comment: friend current occupational status: retired Other Information That Helps Us Care for You: No Feels Safe at Home: Yes Safety Concerns: Feels Safe At This Time Childhood Exposure to Second-Hand Smoke: Yes Physical Activity Frequency: Does not Exercise Seatbelt Use: always Assistive Devices: Cane Review of Systems Review of Systems: All systems reviewed & are unremarkable except as noted in HPI & below Physical Exam Constitutional: WD/WN, vitals as above Eyes: EOM intact bilaterally Neck: normal appearance Respiratory: normal respiratory effort, lungs clear to auscultation Cardiovascular: Rate/Rhythm: regular rate and regular rhythm Gastrointestinal (Abdomen): normal bowel sounds, soft, nontender, no hepatosplenomegaly Inspection/Auscultation: abdomen not distended Musculoskeletal: Extremities: no cyanosis no lower extremity edema Skin: no rashes, warm and dry Neurologic: moves all extremities Psychiatric: A+Ox3, euthymic affect Results & Data ([facility]) Vital Signs (Past 12 Hours) Vital Signs Temp Pulse Pulse Resp BP Pulse Ox O2 Del Method 02/04/22 08:00 71 02/04/22 08:00 Room Air 02/04/22 07:41 36.9 C 78 18 150/77 H 97 Room Air 02/04/22 03:48 36.6 C 70 18 122/68 94 Room Air 02/03/22 22:51 36.6 C 76 18 127/74 96 Diagnostic Findings Laboratory Results WBC 7.80 K/ul (4.8-10.8) 02/04/22 08: RBC 3.23 M/uL (3.93-5.22) L 02/04/22 08: Hgb 10.0 g/dl (12.0-16.0) L 02/04/22 08: Hct 30.5 % (34.1-44.9) L 02/04/22 08: MCV 94.4 fL (80.0-100.0) 02/04/22 08: MCH 31.0 pg (25.0-34.0) 02/04/22 08: MCHC 32.8 g/dL (32.0-36.0) 02/04/22 08: RDW Std Deviation 43.1 fL (36.4-46.3) 02/04/22: RDW Coeff of Jerod 12.4 % (11.5-14.5) 02/04/22 08: Plt Count 216 K/uL (130-400) 02/04/22 08: MPV 9.6 fL (9.4-12.3) 02/04/22 08: Immature Gran % (Auto) 0.7 % 02/02/22 13:18 Neut % (Auto) 88.4 % 02/02/22 13:18 Lymph % (Auto) 6.0 % 02/02/22 13:18 [place] % (Auto) 4.8 % 02/02/22 13:18 Eos % (Auto) 0.0 % 02/02/22 13:18 Baso % (Auto) 0.1 % 02/02/22 13:18 Neut # (Auto) 8.53 K/uL (1.4-6.5) H 02/02/22 13:18 Lymph # (Auto) 0.58 K/uL (1.2-3.4) L 02/02/22 13:18 [place] # (Auto) 0.46 K/uL (0.24-0.82) 02/02/22 13:18 Eos # (Auto) 0.00 K/uL (0-0.50) 02/02/22 13:18 Baso # (Auto) 0.01 K/uL (0-0.2) 02/02/22 13:18 Immature Gran # (Auto) 0.07 K/uL (0.00-0.02) H 02/02/22 13:18 PT 14.0 Seconds (9.0-12.0) H 02/04/22 08:22 INR 1.3 (0.9-1.1) H 02/04/22 08:22 APTT 33.3 Seconds (21.0-31.0) H 02/02/22 13:18 PTT Ratio 1.2 02/02/22 13:18 Sodium 140 mmol/L (136-145) 02/04/22 08:22 Potassium 4.1 mmol/L (3.5-5.1) 02/04/22 08:22 Chloride 104 mmol/L (98-107) 02/04/22 08:22 Carbon Dioxide 32 mmol/L (21-32) 02/04/22 08:22 Anion Gap 4 (3-11) 02/04/22 08:22 BUN 4 mg/dl (6-23) L 02/04/22 08:22 Creatinine 0.47 mg/dl (0.6-1.2) L 02/04/22 08:22 Est Cr Clr Drug Dosing 106.7 ml/min 02/04/22 08:22 Est GFR ( Amer) 114.4 ml/min 02/04/22 08:22 Est GFR (Non-Af Amer) 98.7 ml/min 02/04/22 08:22 BUN/Creatinine Ratio 8.5 (10-20) L 02/04/22 08:22 Glucose 108 mg/dl (70-99(Fasting)) H 02/04/22 08:22 Calcium 8.2 mg/dl (8.5-10.1) L 02/04/22 08:22 Ionized Calcium 1.09 mmol/L (1.12-1.32) L 02/04/22 08:22 Magnesium 1.6 mg/dl (1.7-2.4) L 02/04/22 08:22 Iron 39 mcg/dl (35-150) 02/03/22 06:08 TIBC 195 mcg/dl (250-450) L 02/03/22 06:08 Unsaturated IBC 156 mcg/dl (155-355) 02/03/22 06:08 Transferrin % Sat 20 % (15-50) 02/03/22 06:08 Ferritin 471.1 ng/ml (8-388) H 02/03/22 06:08 Total Bilirubin 0.9 mg/dl (0.2-1.0) 02/04/22 08:22 Direct Bilirubin 0.2 mg/dl (0-0.2) 02/02/22 13:18 AST 21 U/L (13-39) 02/04/22 08:22 ALT 12 U/L (7-52) 02/04/22 08:22 Alkaline Phosphatase 53 U/L (34-104) 02/04/22 08:22 Troponin I High Sens 47.8 pg/ml (0-14) H 02/03/22 09:31 Total Protein 6.3 gm/dl (6.0-8.3) 02/04/22 08:22 Albumin 3.1 gm/dl (3.4-5.0) L 02/04/22 08:22 Globulin 3.2 gm/dl (2.5-4.0) 02/04/22 08:22 Albumin/Globulin Ratio 1.0 (0.9-2) 02/04/22 08:22 LDL Cholesterol Direct Cancelled 02/03/22 06:12 Lipase 172 U/L (11-82) H 02/02/22 13:18 25-OH Vitamin D Total 102.2 ng/ml (30-100) H 02/02/22 13:18 Urine Color Yellow 02/02/22 14:46 Urine Appearance Clear (Clear) 02/02/22 14:46 Urine pH 5.5 (4.5-7.5) 02/02/22 14:46 Ur Specific [place] 1.016 (1.000-1.030) 02/02/22 14:46 Urine Protein 1+ (Negative) H 02/02/22 14:46 Urine Glucose (UA) Negative (Negative) 02/02/22 14:46 Urine Ketones 3+ (Negative) H 02/02/22 14:46 Urine Blood Negative (Negative) 02/02/22 14:46 Urine Nitrite Negative (Negative) 02/02/22 14:46 Urine Bilirubin Negative (Negative) 02/02/22 14:46 Urine Urobilinogen Negative (Negative) 02/02/22 14:46 Ur Leukocyte Esterase Negative (Negative) 02/02/22 14:46 Urine WBC (Auto) 1-5 /hpf (0-5) 02/02/22 14:46 Urine RBC (Auto) 5-10 /hpf (0-4) H 02/02/22 14:46 U Hyaline Cast (Auto) 10-30 /lpf (0-5) H 02/02/22 14:46 U Epithel Cells (Auto) >30 /lpf (0-5) H 02/02/22 14:46 Urine Bacteria (Auto) 1+ (Negative) H 02/02/22 14:46 Stl C. cayetanensis PCR Not Detected (NotDetected) 02/02/22 12:46 Stool Rotavirus A PCR Not Detected (NotDetected) 02/02/22 12:46 Stl Adenov F 40/41 PCR Not Detected (NotDetected) 02/02/22 12:46 Stool Astrovirus (PCR) Not Detected (NotDetected) 02/02/22 12:46 Stool Campylobacter PCR Not Detected (NotDetected) 02/02/22 12:46 Stool Cryptosporidium PCR Not Detected (NotDetected) 02/02/22 12:46 Stl E.coli Shiga Tox PCR Not Detected (NotDetected) 02/02/22 12:46 Stl Enterotoxigenic E PCR Not Detected (NotDetected) 02/02/22 12:46 Stool EPEC (PCR) Not Detected (NotDetected) 02/02/22 12:46 Stool EAEC (PCR) Not Detected (NotDetected) 02/02/22 12:46 Stl E. histolytica PCR Not Detected (NotDetected) 02/02/22 12:46 Stool Giardia Lamblia PCR Not Detected (NotDetected) 02/02/22 12:46 Stool Salmonella PCR Not Detected (NotDetected) 02/02/22 12:46 Stool Sapovirus (PCR) Not Detected (NotDetected) 02/02/22 12:46 Stl P. shigelloides PCR Not Detected (NotDetected) 02/02/22 12:46 Stl Shigella/EIEC PCR Not Detected (NotDetected) 02/02/22 12:46 St Y.enterocolitica PCR Not Detected (NotDetected) 02/02/22 12:46 Stool Vibrio (PCR) Not Detected (NotDetected) 02/02/22 12:46 Stl Vibrio cholerae PCR Not Detected (NotDetected) 02/02/22 12:46 Stl Norovirus GI/GII PCR Not Detected (NotDetected) 02/02/22 12:46 IgA 132.8 mg/dl (70-400) 02/04/22 08:22 SARS-CoV-2, RNA, NAAT NEGATIVE (NEGATIVE) 02/02/22 15:56 Impressions Abdomen/Pelvis CT 02/02/22 13:25 CT SCAN OF THE ABDOMEN AND PELVIS WITHOUT IV CONTRAST CLINICAL HISTORY: Lower abdominal pain. Nausea and vomiting. COMPARISON STUDY: Abdominal CT dated 01/05/2022. TECHNIQUE: CT scan of the abdomen and pelvis is performed from the lung bases to the proximal femora. Images are reviewed in the axial, sagittal, and coronal planes. IV contrast was not administered for this examination. Note that the examination is suboptimal without oral and IV contrast. There is streak artifact from the arms which could not be elevated above the abdomen. A dose lowering technique was utilized adhering to the principles of ALARA. CT DOSE: 1875.16 mGy.cm FINDINGS: Lung bases: The heart is top normal in size and without pericardial effusion. A calcified granuloma is seen in the right middle lobe. The lung bases are otherwise clear noting dependent atelectasis. Liver: The unenhanced liver is normal in size, contour, and attenuation. There is no intrahepatic biliary ductal dilatation. Gallbladder: Surgically absent noting clips in the gallbladder fossa. Spleen: Normal in size and attenuation. Pancreas: The unenhanced pancreas is moderately atrophic and grossly unremarkable. Adrenal glands: Unremarkable. Kidneys: The unenhanced kidneys demonstrate cortical atrophy and are without hydronephrosis. There are no renal calculi identified. A 3.3 cm cyst is noted on the left. Abdominal vasculature: There is moderate of a sclerotic calcification of the abdominal aorta. There is a 3.2 cm infrarenal abdominal aortic aneurysm. Bowel: There is no bowel obstruction. There is mild infiltration identified around the left colon. The appendix is well-visualized and normal. Asymmetric rectal wall thickening suggested on 01/05/2022 is no longer appreciated. Peritoneum: There is no intraperitoneal free air or abdominal ascites. There is evidence of previous ventral hernia repair. Lymphadenopathy: None. Pelvic viscera: The bladder and uterus are normal as visualized. A 4.2 cm simple cystic lesion in the left adnexa is unchanged and likely related to the left ovary. Skeletal structures: The skeletal structures are osteopenic. There is moderate lumbosacral spondylosis. No lytic or blastic lesions are seen. IMPRESSION: 1. There is faint infiltration identified around the left colon. Correlate clinically for evidence of a mild nonspecific colitis. 2. No bowel obstruction. 3. There is a 3.2 cm infrarenal abdominal aortic aneurysm. 4. Additional findings as above. ACT 112: Negative or not required by law. Electronically signed by: Jesus Galan M.D. 02/02/2022 2:[address] 02/02/22 13:[address] DOSE: HISTORY: headache post vomiting TECHNIQUE: Multiaxial CT images of the head were performed without the use of intravenous contrast. Automated exposure control was utilized for this study. A dose lowering technique was utilized adhering to the principles of ALARA. Comparison: Head CT 10/31/2008. Findings: The paranasal sinuses and mastoid air cells are clear. The calvarium and skull base are intact. There is no mass, hematoma, midline shift, acute infarct. White matter hypodensity is nonspecific but suggestive of microvascular ischemic change. The ventricles and sulci demonstrate mild age-related involutional changes. Impression: No acute intracranial abnormality. Atrophy and microvascular ischemic changes. ACT 112: Negative or not required by law. Electronically signed by: Jarod Cuello M.D. 02/02/2022 2:34 PM PG Care Time/CCT Total # of Minutes Spent Total Time Spent with Patient: Total time spent is greater than 50% in coordination of care (as documented) at patient's floor/unit and/or counseling patient: Coding Level of Care Code 59919 Initial Inpt Care Lvl 3 Diagnoses Atrial fibrillation with rapid ventricular response I48.91 Nausea vomiting and diarrhea R11.2; R19.7
[2022-02-04] MEDS ORDERED: STAT IV STA (16:37)
[2022-02-04] MEDS ORDERED: CALCIUM GLUCONATE 10% 1,000 MG in DEXTROSE 5% 50 ML IV ONE (17:00)
[2022-02-04] MEDS: MAGNESIUM SULFATE / D5W 1 GM/100 ML BAG IV SCH ×3 (17:32→21:05)
--- NOTE | 2022-02-04 17:35 | Billing Data ---
Date of Service February 04, 2022 Coding Level of Care Code 97339 Subseq Hosp Care Lvl 3
[2022-02-05] MEDS: ACETAMINOPHEN 325 MG TAB PO PRN ×2 (01:16→16:44)
[2022-02-05] MEDS: PANTOprazole 40 MG TAB PO SCH (08:25)
[2022-02-05] MEDS: METOPROLOL TARTRATE 25 MG TAB PO SCH ×2 (08:25→21:14)
[2022-02-05] MEDS: APIXABAN 5 MG TABLET PO SCH ×2 (08:26→21:14)
[2022-02-05 09:21] LABS: Hematocrit (blood only) 31.1 % (34.1-44.9); Hemoglobin 10.4 g/dl (12.0-16.0); Mean Corpuscular Hgb Conc 33.4 g/dL (32.0-36.0); Mean Corpuscular Volume 92.6 fL (80.0-100.0); Mean Platelet Volume 9.5 fL (9.4-12.3); Platelet Count 236 K/uL (130-400); RDW Coefficient of Variation 12.1 % (11.5-14.5); Red Blood Count 3.36 M/uL (3.93-5.22); White Blood Count 7.96 K/ul (4.8-10.8)
[2022-02-05 09:45] LABS: Albumin Globulin Ratio 0.9 (0.9-2); BUN Creatinine Ratio 17.3 (10-20); Bilirubin,Total 0.8 mg/dl (0.2-1.0); Calcium 8.9 mg/dl (8.5-10.1); Creatinine Clr Calc Pharmacy 96.4 ml/min; Est GFR (African American) 110.6 ml/min; Est GFR (Non-African American) 95.5 ml/min; Globulin 3.2 gm/dl (2.5-4.0); Magnesium 1.6 mg/dl (1.7-2.4); Phosphorus 1.9 mg/dl (2.5-4.9); Potassium 3.8 mmol/L (3.5-5.1); Total Protein 6.2 gm/dl (6.0-8.3)
--- NOTE | 2022-02-05 10:11 | Gastroenterology Progress Note ---
Date of Service February 05, 2022 Assessment & Plan (1) Atrial fibrillation with rapid ventricular response: (2) Nausea vomiting and diarrhea: Plan 1. Recommend ongoing medical management. 2. Await Celiac panel as pending. 3. Outpatient EGD/Colonoscopy with Dr. Mathew in 1-2 weeks. This is being arranged by our office. 4. GI sign off at this time. Please feel free to contact us if needed. Admission and Anticipated Discharge Date Admission Date: February 02, 2022 Subjective Patient reports she is doing well this morning. Tolerating diet. Diarrhea is imp roved. No abdominal pain. H&H stable. Mag low this am at 1.6. Review of Systems Constitutional: no problem reported Gastrointestinal: as per Subjective / HPI Physical Exam Constitutional: WD/WN, vitals as above Respiratory: normal respiratory effort, lungs clear to auscultation Cardiovascular: RRR, no murmur, no edema Gastrointestinal (Abdomen): normal bowel sounds, soft, nontender, no hepatosplenomegaly Psychiatric: A+Ox3, euthymic affect Results & Data Results & Data ([facility]) Vital Signs (Past 12 Hours) Vital Signs Temp Pulse Pulse Resp BP Pulse Ox O2 Del Method 02/05/22 08:57 Room Air 02/05/22 08:22 36.6 C 63 16 127/56 L 92 Room Air 02/05/22 07:36 68 02/05/22 02:50 37.0 C 66 18 150/66 H 94 02/04/22 23:06 37.2 C 82 18 157/68 H 94 Laboratory Results Abnormal lab results 02/05/22 02/05/22 Range/Units 08:55 08:55 RBC 3.36 L (3.93-5.22) M/uL Hgb 10.4 L (12.0-16.0) g/dl Hct 31.1 L (34.1-44.9) % Creatinine 0.52 L (0.6-1.2) mg/dl Glucose 154 H (70-99(Fasting)) mg/dl Phosphorus 1.9 L (2.5-4.9) mg/dl Magnesium 1.6 L (1.7-2.4) mg/dl Albumin 3.0 L (3.4-5.0) gm/dl PG Care Time/CCT Total # of Minutes Spent Total Time Spent with Patient: Total time spent is greater than 50% in coordination of care (as documented) at patient's floor/unit and/or counseling patient: Coding Level of Care Code 12397 Subseq Hosp Care Lvl 3 Diagnoses Atrial fibrillation with rapid ventricular response I48.91 Nausea vomiting and diarrhea R11.2; R19.7
[2022-02-05 10:46] LABS: INR 1.2 (0.9-1.1); Prothrombin Time 12.3 Seconds (9.0-12.0)
--- NOTE | 2022-02-05 13:10 | Hospitalist Progress Note ---
Date of Service February 05, 2022 Assessment & Plan (1) Atrial fibrillation with RVR: (2) Hypomagnesemia: (3) Hypokalemia: (4) Nausea vomiting and diarrhea: (5) GERD (gastroesophageal reflux disease): (6) Chronic venous insufficiency: (7) Hypercholesterolemia: (8) High anion gap metabolic acidosis: Plan Nani is a 71 year old female with history of GERD, IBS, T2DM, HLD, OA, venous insufficiency, and Scarlet Fever (1968) who presented for evaluation of ongoing diarrhea (6 wks +). She had been evaluated 01/05 and found to have a negative stool panel at this time. At this visit, she was found to be in AFib RVR with hypokalemia and hypomagnesemia. Patient was admitted for management of new atrial fibrillation in the setting of electrolyte abnormalities. Chronic nausea/Diarrhea (a/w Hypomagnesemia & Hypokalemia) - Ddx: Hypervitaminosis, functional diarrhea, malnutrition, secretory diarrhea, allergy (casein, celiac, etc), microscopic colitis, infection SIBO - Patient seen in our ED 01/05 for 2 weeks of worsening nonbloody diarrhea w/o leukocytosis, stool PCR negative for all, including C. difficile at this time - Symptoms significantly worsened by stressors - No constipation on CT, non-specific colitis - CTAP: Faint infiltration identified around the left colon. Correlate clinically for evidence of a mild nonspecific colitis. No bowel obstruction. - CT Head: No acute intracranial abnormality. Atrophy and microvascular ischemic changes. - Negative colonoscopy 2019, biopsy negative for microscopic colitis - Significant weight loss (40 lbs in last year) - Diet of primarily yogurt and bananas - High INR (malnutrition?) - New incontinence (continent at home) - Repeat Stool BioFire negative - Imodium and antidiarrheals held - Vitamins held (Vit C, Vit D, Vit E, Vit B) d/t possible association w/ naus ea/diarrhea --- Celiac lab panel pending --- GI Recommending outpatient workup in 1-2 weeks w/ EGD and Colonoscopy --- Continue to follow Malnutrition (Hypomagnesemia/Hypokalemia) - Diet of primarily yogurt and bananas (~ 1 year) - Significant weight loss (40 lbs in last year) - Ordered K and Mg replacement to get K of 4.0, Mg 2.0. - Hypokalemic despite ongoing K supplement at home - Electrolyte depletion 2/2 chronic diarrhea and recent emesis - Given 15 mg Vitamin K d/t low INR, likely 2/2 malnutrition --- Repleted Mg and Calcium, following --- INR improved Atrial fibrillation with RVR - Present on initial eval in ED with HR 150s, now HR 60-70s after 5 mg IV Lopressor x2 in ED. - Considered 2/2 hypomagnesia and hypokalemia in the setting of 6 weeks of ongoing diarrheal illness - Patient started on 12.5 mg metoprolol BID, with IV Lopressor PRN for HR >120 - Echo: EF 60-65%, mild mitral and tricuspid regurgitation --- Tele: Sinus in 60-70s --- Continue Eliquis 5 mg PO BID --- Continue Metoprolol 12.5 mg PO BID GERD (gastroesophageal reflux disease) - Continue PPI, switch from Nexium to hospital formulary. Chronic venous insufficiency: - Encourage compression stockings, elevate legs Hypercholesterolemia: - Declines statin High anion gap metabolic acidosis - With ketones in UA, 6+ weeks of poor appetite, likely due to starvation ketoacidosis Bacteruria - Gram negative bacilli noted on urine culture - Patient remains asymptomatic, thus no Abx will be started at this time FEN: Regular Code status: Full Code DVT ppx: Eliquis 5 mg PO (therapeutic, new onset AFib) Isolation: None Dispo:PCU/tele Admission and Anticipated Discharge Date Admission Date: February 02, 2022 Supervising Physician Co-Signing Physician Notes I personally examined the patient and verified all zamora points of history and exam, discussed case, and agree with decision making with Dr Aguilar Eating well, no postprandial pain or nausea, no postprandial diarrhea. In fact, no bowel movement for about the last 30 hours. Does wonder how much stress and loneliness were playing a roleshe is planning on moving in with her friend Parag in the near future. This was confirmed by discussions with Parag with resident physician. vitals noted nad heent nc at mmm breathing unlabored no accessory muscles good effort skin no rashes no pallor or icterus Chronic diarrheadifferential fairly broad. However, while work-up still underway, at this point the leading differential is really that it is malnutrition from anxiety/depression/loneliness, and the diarrhea may either be IBSD, or could even just be inflicted by her drastically limited diet of yogurt and bananas. Given that she is eating well and doing well, I am starting to really be suspicious there is nothing inflammatory or malabsorptive at play at all. We discussed everything quite frankly and she expresses good understanding. We will follow in the hospital for another few days to ensure that this trend continues, and she will continue to work on a less lonely living situation. Hypokalemia/hypomagnesemiarepleting Malnutritionas above, severe calorie given her 40 pounds of weight loss over the last year surprisingly only seems to be mild protein. Suspect high INR related to poor p.o. intakegave vitamin K and corrected to 1.3 A. fib/RVRcorrect mag and K, rate now controlled. Would likely benefit from long-term anticoagulation Otherwise as above Agueda Cardoza is a 71 year old female with history of GERD, IBS, T2DM, HLD, OA, venous insufficiency, and Scarlet Fever (1968) who presented for evaluation of ongoing diarrhea (6 wks +). She had been evaluated 01/05 and found to have a negative stool panel at this time. At this visit, she was found to be in AFib RVR with hypokalemia and hypomagnesemia. Patient was admitted for management of new atrial fibrillation in the setting of electrolyte abnormalities. 02/05: Patient comfortable and enjoying breakfast in room. She states that she continues to have 3-4 small loose stools/day. She denies any abdominal pain or dysuria. She has been consuming a regular diet w/o difficulty. She deneis any chest pain, palpitations, or dyspnea. Tele: NSR 60-70s 1100 Attempts to call patient's friend Parag unsuccessful (x2) Review of Systems Review of Systems: See HPI. Physical Exam Physical Exam: Gen: NAD, alert, interactive Resp:Non-labored, no wheezing/rhonchi/rales, CTAB CV:RRR, normal S1/S2, no M/R/G Abd: Soft, non-distended, no TTP, normoactive bowels, no masses Extr: 2+ dp bilaterally, no edema Results & Data Results & Data ([facility]) Vital Signs (Past 12 Hours) Vital Signs Temp Pulse Pulse Resp BP Pulse Ox O2 Del Method 02/05/22 11:37 36.7 C 65 15 127/72 94 Room Air 02/05/22 08:57 Room Air 02/05/22 08:22 36.6 C 63 16 127/56 L 92 Room Air 02/05/22 07:36 68 02/05/22 02:50 37.0 C 66 18 150/66 H 94 Resident Activity Tracking Resident Involvement: Resident Care Provided Care Provided: Adult Hospital Medicine
--- NOTE | 2022-02-05 18:23 | Billing Data ---
Date of Service February 05, 2022 Coding Level of Care Code 27850 Subseq Hosp Care Lvl 3
[2022-02-06 01:56] LABS: IgA Serum 142 mg/dL (70-320); Tis Trans IgA <1.0 U/mL
--- NOTE | 2022-02-06 06:44 | Hospitalist Progress Note ---
Date of Service February 06, 2022 Assessment & Plan (1) Atrial fibrillation with RVR: (2) Hypomagnesemia: (3) Hypokalemia: (4) Nausea vomiting and diarrhea: (5) GERD (gastroesophageal reflux disease): (6) Chronic venous insufficiency: (7) Hypercholesterolemia: (8) High anion gap metabolic acidosis: Plan Nani is a 71 year old female with history of GERD, IBS, T2DM, HLD, OA, venous insufficiency, and Scarlet Fever (1968) who presented for evaluation of ongoing diarrhea (6 wks +). She had been evaluated 01/05 and found to have a negative stool panel at this time. At this visit, she was found to be in AFib RVR with hypokalemia and hypomagnesemia. Patient was admitted for management of new atrial fibrillation in the setting of electrolyte abnormalities. Chronic nausea/Diarrhea (a/w Hypomagnesemia & Hypokalemia) - Ddx: Hypervitaminosis, functional diarrhea, malnutrition, secretory diarrhea, allergy (casein, celiac, etc), microscopic colitis, infection SIBO - Patient seen in our ED 01/05 for 2 weeks of worsening nonbloody diarrhea w/o leukocytosis, stool PCR negative for all, including C. difficile at this time - Symptoms significantly worsened by stressors - No constipation on CT, non-specific colitis - CTAP: Faint infiltration identified around the left colon. Correlate clinically for evidence of a mild nonspecific colitis. No bowel obstruction. - CT Head: No acute intracranial abnormality. Atrophy and microvascular ischemic changes. - Negative colonoscopy 2019, biopsy negative for microscopic colitis - Significant weight loss (40 lbs in last year) - Diet of primarily yogurt and bananas - High INR (malnutrition?) - New incontinence (continent at home) - Repeat Stool BioFire negative - Imodium and antidiarrheals held - Vitamins held (Vit C, Vit D, Vit E, Vit B) d/t possible association w/ naus ea/diarrhea --- 02/06 Celiac Lab Panel: No serologic evidence of celiac disease present --- GI Recommending outpatient workup in 1-2 weeks w/ EGD and Colonoscopy --- Continue to follow Epigastric Fullness/Discomfort - Moderate TTP on exam w/o rebound or guarding, bowel sounds present in all 4 quadrants - Fullness occurred directly following breakfast 02/06 w/o any nausea or emesis - Follow physical exam Malnutrition (Hypomagnesemia/Hypokalemia) - Diet of primarily yogurt and bananas (~ 1 year) - Significant weight loss (40 lbs in last year) - Ordered K and Mg replacement to get K of 4.0, Mg 2.0. - Hypokalemic despite ongoing K supplement at home - Electrolyte depletion 2/2 chronic diarrhea and recent emesis - Given 15 mg Vitamin K d/t low INR, likely 2/2 malnutrition --- Repleted Mg, Vitamin K, and Calcium, following --- Abnormalities in electrolytes appear consistent with malnutrition, closely following as patient advances diet Atrial fibrillation with RVR - Present on initial eval in ED with HR 150s, now HR 60-70s after 5 mg IV Lopressor x2 in ED. - Considered 2/2 hypomagnesia and hypokalemia in the setting of 6 weeks of ongoing diarrheal illness - Patient started on 12.5 mg metoprolol BID, with IV Lopressor PRN for HR >120 - Echo: EF 60-65%, mild mitral and tricuspid regurgitation --- Tele: Sinus in 60-70s --- Continue Eliquis 5 mg PO BID --- Continue Metoprolol 12.5 mg PO BID GERD (gastroesophageal reflux disease) - Continue PPI, switch from Nexium to hospital formulary. Chronic venous insufficiency: - Encourage compression stockings, elevate legs Hypercholesterolemia: - Declines statin High anion gap metabolic acidosis - With ketones in UA, 6+ weeks of poor appetite, likely due to starvation ketoacidosis Bacteruria - Gram negative bacilli noted on urine culture - Patient remains asymptomatic, thus no Abx will be started at this time FEN: Regular Code status: Full Code DVT ppx: SCDs/Eliquis 5 mg PO (therapeutic, new onset AFib) Isolation: None Dispo:PCU/tele Admission and Anticipated Discharge Date Admission Date: February 02, 2022 Supervising Physician Co-Signing Physician Notes I personally examined the patient and verified all zamora points of history and exam, discussed case, and agree with decision making with Dr Aguilar Little bit of upper abdominal fullness and mild discomfort after eating breakfast. None really after eating lunchhe probably ate 90% of her lunch except for the chicken, noted the chicken was a little bit hard to swallow. vitals noted nad heent nc at mmm breathing unlabored no accessory muscles good effort skin no rashes no pallor or icterus. Mild/moderate epigastric tenderness but no guarding rebound or rigidity Chronic diarrheadifferential fairly broad. However, while work-up still underway, at this point the leading differential is really that it is malnutrition from anxiety/depression/loneliness, and the diarrhea may either be IBSD, or could even just be inflicted by her drastically limited diet of yogurt and bananas. Given that she is eating well and doing well, I am starting to really be suspicious there is nothing inflammatory or malabsorptive at play at all. We discussed everything quite frankly and she expresses good understanding. We will follow in the hospital for another few days to ensure that this trend continues, and she will continue to work on a less lonely living situation. Upper abdominal discomfort most likely indigestion given that she is eating much more than she has in months. Symptomatic care, continue to follow Hypokalemia/hypomagnesemiarepleting, recheck tomorrow Malnutritionas above, severe calorie given her 40 pounds of weight loss over the last year surprisingly only seems to be mild protein. Suspect high INR related to poor p.o. intakegave vitamin K and corrected to 1.3 A. fib/RVRcorrect mag and K, rate now controlled. Would likely benefit from long-term anticoagulation Otherwise as above follow with p.o. intake over the next day or 2 given how severe her symptoms were at homebut given how well she is doing, strongly suspecting that the malnutrition was depression/loneliness induced, she is going to move in with her friend Ralphwe all agree that as long as she is eating and drinking well for another day or 2 with no recurrence of bowel symptoms, it will be safe to get her home. Subjective Nani is a 71 year old female with history of GERD, IBS, T2DM, HLD, OA, venous insufficiency, and Scarlet Fever (1968) who presented for evaluation of ongoing diarrhea (6 wks +). She had been evaluated 01/05 and found to have a negative stool panel at this time. At this visit, she was found to be in AFib RVR with hypokalemia and hypomagnesemia. Patient was admitted for management of new atrial fibrillation in the setting of electrolyte abnormalities. 02/06: Patient resting comfortable in room upon arrival. She recently had eaten a full breakfast (pancakes) and notes that she is feeling 'epigastric fullness'. She notes a full, regular dinner last evening w/o any symptoms. Patient recalls today that she has not moved her bowels since the day after she arrived (02/03). She is not experiencing pain in her abdomen and continues to pass gas. Patient denies any chest pain, dyspnea, or pleuritic pain. She notes that she enjoys being here because she 'has more friends here'. She notes anxiety surrounding going home because she will have to 'go back to being alone'. 02/05: Patient comfortable and enjoying breakfast in room. She states that she continues to have 3-4 small loose stools/day. She denies any abdominal pain or dysuria. She has been consuming a regular diet w/o difficulty. She deneis any chest pain, palpitations, or dyspnea. Tele: NSR 60-70s 1700 Talked with patient's friend Who relayed month of worsening mood and GI distress. Noted that they are in the process of moving Nani into his apartment, they are just waiting on her lease to end. Review of Systems Review of Systems: See HPI. Physical Exam Physical Exam: Gen: NAD, alert, interactive Resp:Non-labored, no wheezing/rhonchi/rales, CTAB CV:RRR, normal S1/S2, no M/R/G Abd: Soft, non-distended, moderate TTP in epigastrium, normoactive bowels, no masses, no rebound or guarding Extr: 2+ dp bilaterally, no edema Results & Data Results & Data ([facility]) Vital Signs (Past 12 Hours) Vital Signs Temp Pulse Resp BP Pulse Ox O2 Del Method 02/05/22 22:58 36.8 C 67 16 127/85 98 Room Air 02/05/22 19:00 37.1 C 71 16 133/75 96 Room Air Resident Activity Tracking Resident Involvement: Resident Care Provided Care Provided: Adult Hospital Medicine
[2022-02-06 06:53] LABS: Hematocrit (blood only) 30.5 % (34.1-44.9); Hemoglobin 10.2 g/dl (12.0-16.0); Mean Corpuscular Hemoglobin 31.7 pg (25.0-34.0); Mean Corpuscular Hgb Conc 33.4 g/dL (32.0-36.0); Mean Corpuscular Volume 94.7 fL (80.0-100.0); Mean Platelet Volume 9.4 fL (9.4-12.3); Platelet Count 225 K/uL (130-400); RDW Standard Deviation 41.5 fL (36.4-46.3); Red Blood Count 3.22 M/uL (3.93-5.22); White Blood Count 6.71 K/ul (4.8-10.8)
[2022-02-06 07:13] LABS: Albumin Globulin Ratio 0.9 (0.9-2); Albumin Level 2.9 gm/dl (3.4-5.0); BUN Creatinine Ratio 21.3 (10-20); Bilirubin,Total 0.6 mg/dl (0.2-1.0); Calcium 8.8 mg/dl (8.5-10.1); Creatinine Clr Calc Pharmacy 82.4 ml/min; Est GFR (Non-African American) 90.6 ml/min; Globulin 3.3 gm/dl (2.5-4.0); Total Protein 6.2 gm/dl (6.0-8.3)
[2022-02-06] MEDS: APIXABAN 5 MG TABLET PO SCH ×2 (09:15→20:38)
[2022-02-06] MEDS: METOPROLOL TARTRATE 25 MG TAB PO SCH ×2 (09:15→20:39)
[2022-02-06] MEDS: PANTOprazole 40 MG TAB PO SCH (09:15)
--- NOTE | 2022-02-06 18:20 | Billing Data ---
Date of Service February 06, 2022 Coding Level of Care Code 63798 Subseq Hosp Care Lvl 3
[2022-02-06] MEDS: ACETAMINOPHEN 325 MG TAB PO PRN (18:51)
--- NOTE | 2022-02-07 06:59 | Hospitalist Progress Note ---
Date of Service February 07, 2022 Assessment & Plan (1) Atrial fibrillation with RVR: (2) Hypomagnesemia: (3) Hypokalemia: (4) Nausea vomiting and diarrhea: (5) GERD (gastroesophageal reflux disease): (6) Chronic venous insufficiency: (7) Hypercholesterolemia: (8) High anion gap metabolic acidosis: Plan Nani is a 71 year old female with history of GERD, IBS, T2DM, HLD, OA, venous insufficiency, and Scarlet Fever (1968) who presented for evaluation of ongoing diarrhea (6 wks +). She had been evaluated 01/05 and found to have a negative stool panel at this time. At this visit, she was found to be in AFib RVR with hypokalemia and hypomagnesemia. Patient was admitted for management of new atrial fibrillation in the setting of electrolyte abnormalities. Chronic nausea/Diarrhea (a/w Hypomagnesemia & Hypokalemia) - Ddx: Hypervitaminosis, functional diarrhea, malnutrition, secretory diarrhea, allergy (casein, celiac, etc), microscopic colitis, infection SIBO. 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 - Patient seen in our ED 01/05 for 2 weeks of worsening nonbloody diarrhea w/o leukocytosis, stool PCR negative for all, including C. difficile at this time - Symptoms significantly worsened by stressors - No constipation on CT, non-specific colitis - CTAP: Faint infiltration identified around the left colon. Correlate clinically for evidence of a mild nonspecific colitis. No bowel obstruction. - Negative colonoscopy 2019, biopsy negative for microscopic colitis - Significant weight loss (40 lbs in last year) - Repeat Stool BioFire negative - Imodium and antidiarrheals held - Vitamins held (Vit C, Vit D, Vit E, Vit B) d/t possible association w/ nausea/diarrhea -Celiac Lab Panel: No serologic evidence of celiac disease present --- GI Recommending outpatient workup in 1-2 weeks w/ EGD and Colonoscopy --- Continue to follow --- If she continues to tolerate full diet, hope for discharge tomorrow Malnutrition (Hypomagnesemia/Hypokalemia) - Diet of primarily yogurt and bananas (~ 1 year) - Significant weight loss (40 lbs in last year) - Ordered K and Mg replacement to get K of 4.0, Mg 2.0. - Hypokalemic despite ongoing K supplement at home - High INR - Given 15 mg Vitamin K d/t low INR, likely 2/2 malnutrition --- Repleted Mg; following Atrial fibrillation with RVR - Present on initial eval in ED with HR 150s, now HR 60-70s after 5 mg IV Lopressor x2 in ED. - Considered 2/2 hypomagnesia and hypokalemia in the setting of 6 weeks of ongoing diarrheal illness - Patient started on 12.5 mg metoprolol BID, with IV Lopressor PRN for HR >120 - Echo: EF 60-65%, mild mitral and tricuspid regurgitation --- Continue Eliquis 5 mg PO BID --- Continue Metoprolol 12.5 mg PO BID GERD (gastroesophageal reflux disease) - Continue PPI Chronic venous insufficiency: - Encourage compression stockings, elevate legs Hypercholesterolemia: - Declines statin High anion gap metabolic acidosis - With ketones in UA, 6+ weeks of poor appetite, likely due to starvation ketoacidosis Bacteruria - Gram negative bacilli noted on urine culture - Patient remains asymptomatic, thus no Abx will be started at this time FEN: Regular Code status: Full Code DVT ppx: SCDs/Eliquis 5 mg PO (therapeutic, new onset AFib) Isolation: None Dispo:PCU/tele Admission and Anticipated Discharge Date Admission Date: February 02, 2022 Supervising Physician Co-Signing Physician Notes I personally examined the patient and verified all zamora points of history and exam, discussed case, and agree with decision making with Dr Garza eating fairly well. still some epigastric fullness but not nausea. still no BM. is going to move in with sachin. vitals noted nad heent nc at mmm breathing unlabored no accessory muscles good effort skin no rashes no pallor or icterus. ongoing mild/moderate epigastric tenderness but no guarding rebound or rigidity Chronic diarrheadifferential fairly broad. However, while work-up still underw ay, at this point the leading differential is really that it is malnutrition from anxiety/depression/loneliness, and the diarrhea may either be IBSD, or could even just be inflicted by her drastically limited diet of yogurt and bananas. Given that she is eating well and doing well, I am starting to really be suspicious there is nothing inflammatory or malabsorptive at play at all. We discussed everything quite frankly and she expresses good understanding. We will follow in the hospital for another day to ensure that this trend continues, and she will continue to work on a less lonely living situation. Upper abdominal discomfort most likely indigestion given that she is eating much more than she has in months. Symptomatic care, continue to follow Hypokalemia/hypomagnesemiarepleting, following Malnutritionas above, severe calorie given her 40 pounds of weight loss over the last year surprisingly only seems to be mild protein. Suspect high INR related to poor p.o. intakegave vitamin K and corrected to 1.3 A. fib/RVRrate controlled/anticoagulated probably home tomorrow Agueda Cardoza is a 71 year old female with history of GERD, IBS, T2DM, HLD, OA, venous insufficiency, and Scarlet Fever (1968) who presented for evaluation of ongoing diarrhea (6 wks +). She had been evaluated 01/05 and found to have a negative stool panel at this time. At this visit, she was found to be in AFib RVR with hypokalemia and hypomagnesemia. Patient was admitted for management of new atrial fibrillation in the setting of electrolyte abnormalities. States that she is doing well this morning.Good appetite; tolerating full diet. Does note that she needs new dentures, so had some trouble chewing meat. Review of Systems Review of Systems: See HPI. Physical Exam Physical Exam: Constitutional: well-appearing, no acute distress HEENT: NCAT, no conjunctival injection CV: regular rhythm, no murmur appreciated, extremities well-perfused, no LE edema Resp: CTABL, no wheezes/rales/rhonchi appreciated, no increased work of breathing GI: soft, nondistended, nontender, BS normoactive MSK: no gross deformities appreciated Skin: warm, dry, no rash appreciated Neuro: alert, oriented, no focal neurologic deficit appreciated Results & Data Results & Data ([facility]) Vital Signs (Past 12 Hours) Vital Signs Temp Pulse Pulse Resp BP Pulse Ox O2 Del Method 02/06/22 22:16 66 02/07/22 02:53 36.5 C 60 20 119/69 96 Room Air 02/06/22 23:00 36.7 C 63 17 125/74 95 Room Air 02/06/22 20:37 75 18 134/73 95 Room Air 02/06/22 19:00 36.7 C 78 18 138/81 94 Room Air Resident Activity Tracking Resident Involvement: Resident Care Provided Care Provided: Adult Hospital Medicine
[2022-02-07 07:06] LABS: Hematocrit (blood only) 32.4 % (34.1-44.9); Hemoglobin 10.5 g/dl (12.0-16.0); Mean Corpuscular Hemoglobin 30.9 pg (25.0-34.0); Mean Corpuscular Hgb Conc 32.4 g/dL (32.0-36.0); Mean Corpuscular Volume 95.3 fL (80.0-100.0); Mean Platelet Volume 9.2 fL (9.4-12.3); Platelet Count 236 K/uL (130-400); RDW Coefficient of Variation 11.9 % (11.5-14.5); RDW Standard Deviation 41.5 fL (36.4-46.3); White Blood Count 5.42 K/ul (4.8-10.8)
[2022-02-07 07:23] LABS: INR 1.2 (0.9-1.1); Prothrombin Time 12.4 Seconds (9.0-12.0)
[2022-02-07 07:31] LABS: BUN Creatinine Ratio 19.4 (10-20); Calcium 9.1 mg/dl (8.5-10.1); Creatinine Clr Calc Pharmacy 81.1 ml/min; Est GFR (African American) 104.4 ml/min; Est GFR (Non-African American) 90.1 ml/min; Potassium 4.1 mmol/L (3.5-5.1)
[2022-02-07] MEDS: METOPROLOL TARTRATE 25 MG TAB PO SCH ×2 (08:43→20:00)
[2022-02-07] MEDS: APIXABAN 5 MG TABLET PO SCH ×2 (08:43→20:00)
[2022-02-07] MEDS: PANTOprazole 40 MG TAB PO SCH (08:43)
[2022-02-07] MEDS: MAGNESIUM SULFATE / D5W 1 GM/100 ML BAG IV SCH ×3 (12:34→16:46)
--- NOTE | 2022-02-07 16:58 | Billing Data ---
Date of Service February 07, 2022 Coding Level of Care Code 51473 Subseq Hosp Care Lvl 3
[2022-02-07] MEDS: FAMOTIDINE 20 MG TAB PO SCH (20:00)
[2022-02-08 06:27] LABS: Hematocrit (blood only) 30.4 % (34.1-44.9); Hemoglobin 10.2 g/dl (12.0-16.0); Mean Corpuscular Hemoglobin 31.1 pg (25.0-34.0); Mean Corpuscular Hgb Conc 33.6 g/dL (32.0-36.0); Mean Corpuscular Volume 92.7 fL (80.0-100.0); Mean Platelet Volume 9.2 fL (9.4-12.3); Platelet Count 264 K/uL (130-400); RDW Coefficient of Variation 11.9 % (11.5-14.5); RDW Standard Deviation 40.6 fL (36.4-46.3); Red Blood Count 3.28 M/uL (3.93-5.22); White Blood Count 6.57 K/ul (4.8-10.8)
--- NOTE | 2022-02-08 06:52 | Hospitalist Progress Note ---
Date of Service February 08, 2022 Assessment & Plan (1) Atrial fibrillation with RVR: (2) Hypomagnesemia: (3) Hypokalemia: (4) Nausea vomiting and diarrhea: (5) GERD (gastroesophageal reflux disease): (6) Chronic venous insufficiency: (7) Hypercholesterolemia: (8) High anion gap metabolic acidosis: Plan Nani is a 71 year old female with history of GERD, IBS, T2DM, HLD, OA, venous insufficiency, and Scarlet Fever (1968) who presented for evaluation of ongoing diarrhea (6 wks +). She had been evaluated 01/05 and found to have a negative stool panel at this time. At this visit, she was found to be in AFib RVR with hypokalemia and hypomagnesemia. Patient was admitted for management of new atrial fibrillation in the setting of electrolyte abnormalities. Chronic nausea/Diarrhea (a/w Hypomagnesemia & Hypokalemia) - Ddx: Hypervitaminosis, functional diarrhea, malnutrition, secretory diarrhea, allergy (casein, celiac, etc), microscopic colitis, infection SIBO. 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 - Patient seen in our ED 01/05 for 2 weeks of worsening nonbloody diarrhea w/o leukocytosis, stool PCR negative for all, including C. difficile at this time - Symptoms significantly worsened by stressors - No constipation on CT, non-specific colitis - CTAP: Faint infiltration identified around the left colon. Correlate clinically for evidence of a mild nonspecific colitis. No bowel obstruction. - Negative colonoscopy 2019, biopsy negative for microscopic colitis - Significant weight loss (40 lbs in last year) - Repeat Stool BioFire negative - Imodium and antidiarrheals held - Vitamins held (Vit C, Vit D, Vit E, Vit B) d/t possible association w/ nausea/diarrhea -Celiac Lab Panel: No serologic evidence of celiac disease present --- GI Recommending outpatient workup in 1-2 weeks w/ EGD and Colonoscopy --- Continue to follow --- If she continues to tolerate full diet, hope for discharge tomorrow Malnutrition (Hypomagnesemia/Hypokalemia) - Diet of primarily yogurt and bananas (~ 1 year) - Significant weight loss (40 lbs in last year) - Ordered K and Mg replacement to get K of 4.0, Mg 2.0. - Hypokalemic despite ongoing K supplement at home - High INR - Given 15 mg Vitamin K d/t low INR, likely 2/2 malnutrition --- Repleted Mg; following Atrial fibrillation with RVR - Present on initial eval in ED with HR 150s, now HR 60-70s after 5 mg IV Lopressor x2 in ED. - Considered 2/2 hypomagnesia and hypokalemia in the setting of 6 weeks of ongoing diarrheal illness - Patient started on 12.5 mg metoprolol BID, with IV Lopressor PRN for HR >120 - Echo: EF 60-65%, mild mitral and tricuspid regurgitation --- Continue Eliquis 5 mg PO BID --- Continue Metoprolol 12.5 mg PO BID GERD (gastroesophageal reflux disease) - Continue PPI Chronic venous insufficiency: - Encourage compression stockings, elevate legs Hypercholesterolemia: - Declines statin High anion gap metabolic acidosis - With ketones in UA, 6+ weeks of poor appetite, likely due to starvation ketoacidosis Bacteruria - Gram negative bacilli noted on urine culture - Patient remains asymptomatic, thus no Abx will be started at this time FEN: Regular Code status: Full Code DVT ppx: SCDs/Eliquis 5 mg PO (therapeutic, new onset AFib) Isolation: None Dispo:PCU/tele Admission and Anticipated Discharge Date Admission Date: February 02, 2022 Agueda Cardoza is a 71 year old female with history of GERD, IBS, T2DM, HLD, OA, venous insufficiency, and Scarlet Fever (1968) who presented for evaluation of ongoing diarrhea (6 wks +). She had been evaluated 10/10 and found to have a negative stool panel at this time. At this visit, she was found to be in AFib RVR with hypokalemia and hypomagnesemia. Patient was admitted for management of new atrial fibrillation in the setting of electrolyte abnormalities. States that she is doing well this morning.Good appetite; tolerating full diet. Does note that she needs new dentures, so had some trouble chewing meat. Review of Systems Review of Systems: See HPI. Physical Exam Physical Exam: Constitutional: well-appearing, no acute distress HEENT: NCAT, no conjunctival injection CV: regular rhythm, no murmur appreciated, extremities well-perfused, no LE edema Resp: CTABL, no wheezes/rales/rhonchi appreciated, no increased work of breathing GI: soft, nondistended, nontender, BS normoactive MSK: no gross deformities appreciated Skin: warm, dry, no rash appreciated Neuro: alert, oriented, no focal neurologic deficit appreciated Results & Data Results & Data ([facility]) Vital Signs (Past 12 Hours) Vital Signs Temp Pulse Pulse Resp BP Pulse Ox O2 Del Method 02/08/22 02:52 36.8 C 70 18 121/70 95 Room Air 02/07/22 22:08 66 02/07/22 23:13 37.0 C 76 16 143/80 H 96 Room Air 02/07/22 19:54 75 20 130/77 97 Room Air 02/07/22 19:14 36.8 C 78 22 128/72 92 Room Air
[2022-02-08 07:11] LABS: Albumin Globulin Ratio 0.9 (0.9-2); Albumin Level 3.1 gm/dl (3.4-5.0); BUN Creatinine Ratio 26.2 (10-20); Bilirubin,Total 0.5 mg/dl (0.2-1.0); Calcium 8.9 mg/dl (8.5-10.1); Creatinine Clr Calc Pharmacy 82.6 ml/min; Est GFR (Non-African American) 90.6 ml/min; Globulin 3.5 gm/dl (2.5-4.0); Magnesium 1.1 mg/dl (1.7-2.4); Phosphorus 2.4 mg/dl (2.5-4.9); Potassium 3.9 mmol/L (3.5-5.1); Total Protein 6.6 gm/dl (6.0-8.3)
[2022-02-08] MEDS: MAGNESIUM SULFATE / D5W 1 GM/100 ML BAG IV SCH ×3 (08:27→12:19)
[2022-02-08] MEDS: APIXABAN 5 MG TABLET PO SCH (08:27)
[2022-02-08] MEDS: PANTOprazole 40 MG TAB PO SCH (08:27)
[2022-02-08] MEDS: METOPROLOL TARTRATE 25 MG TAB PO SCH (08:28)
[2022-02-08] MEDS: FAMOTIDINE 20 MG TAB PO SCH (08:28)
--- NOTE | 2022-02-08 12:23 | Discharge Summary ---
Date of Service February 08, 2022 Admission HPI Per Admitting Provider Nani Henriquez is a 71-year-old female the past medical history significant for hyperlipidemia, venous insufficiency, GERD, arthritis, who is presenting today with abdominal pain and ongoing diarrhea. She is evaluated in our ED on 01/05 for 2 weeks of diarrhea. At that point she was given IV fluids and potassium replacement and discharged home. She notes that her diarrhea has persisted over the last 6 weeks despite taking Imodium, and over the last 2 or 3 days she has been nauseous and vomiting several times a day. She does not have any fever, chills, abdominal pain, blood in her stool or blood in her vomit. She feels very weak overall as she has only been eating yogurt and bananas ever the past few weeks but is unable to tolerate much else. She had a severe headache after vomiting today, otherwise has been without any headaches or neck pain. He has had cramping in her calves and feels too weak to ambulate, but denies any falls. She last had a colonoscopy in 2019 for evaluation of chronic diarrhea. Several polyps removed, biopsy was done for microscopic colitis. At that time the diarrhea resolved when patient adapted healthier diet and started taking a probiotic. Upon presentation to the ED, patient had an HR in the [id number], found to be in A. fib RVR. Received 2 doses of IV Lopressor with HR now 6070s. Vital signs otherwise stable and within normal limits. Labs remarkable for potassium 2.6 and magnesium <0.5, calcium 6.3, AG 18 with ketones in urine. Troponin minimally elevated at 14.1, lipase 172. Hemoglobin 11, decreased from 1 month ago which it was 13.7. CT A/P shows faint infiltration identified around the left colon suggestive of a nonspecific colitis, there is no evidence of bowel obstruction or other acute infectious/inflammatory process. Admission Exam Per Admitting Provider General: awake, alert, with pallor and appears fatigued but no acute distress Head: Normocephalic, atraumatic ENT: PERRL, EOMI, no pharyngeal exudate, mucous membranes moist Chest: Clear to auscultation, on room air, no adventitious breath sounds Cardiac: Regular rate and rhythm, no murmur, no JVD, normal peripheral pulses, good capillary refill Abdominal: NABS x 4 quadrants, soft, nontender to palpation, no rebound, guarding or tenderness Extremities: Normal inspection, no peripheral edema or erythema, calfs nontender to palpation Psych: Normal mood and affect Neuro: AAO x 3, strength intact bilaterally and rated 5/5, no motor deficits, speech is clear, no peripheral sensory deficits Skin: no rash or erythema Principal Diagnosis Malnutrition Discharge Exam Constitutional: well-appearing, no acute distress HEENT: NCAT, no conjunctival injection CV: regular rhythm, no murmur appreciated, extremities well-perfused, no LE edema Resp: CTABL, no wheezes/rales/rhonchi appreciated, no increased work of breathing GI: soft, nondistended, nontender, BS normoactive MSK: no gross deformities appreciated Skin: warm, dry, no rash appreciated Neuro: alert, oriented, no focal neurologic deficit appreciated Discharge Data Allergies Allergy/AdvReac Type Severity Reaction Status Date / Time gatifloxacin Allergy Severe redness of Verified 10/01/21 08:53 the eye (zymaxid) Penicillins Allergy Severe "ALMOST Verified 10/01/21 08:53 " venom-wasp Allergy Severe Anaphylaxis Verified 10/01/21 08:53 house dust Allergy Intermediate itchy Verified 10/01/21 08:53 house dust mite Allergy Intermediate itchy Verified 10/01/21 08:53 mold Allergy Intermediate sinus Verified 10/01/21 08:53 congestion ragweed pollen Allergy Intermediate itchy Verified 10/01/21 08:53 aspirin Allergy Unknown throat Verified 10/01/21 08:53 swelling (as a child) bee venom protein (honey bee) Allergy Unknown SWELLING Verified 10/01/21 08:53 AND SOB Sulfa (Sulfonamide Allergy Unknown HIVES Verified 10/01/21 08:53 Antibiotics) glue Allergy Intermediate irritation Uncoded 10/01/21 08:53 on skin when using in the past EYE DROPS WITH SULFATE Allergy Unknown HIVES Uncoded 10/01/21 08:53 FRESHLY CUT GRASS Allergy Unknown SHORTNESS Uncoded 10/01/21 08:53 OF BREATH Consultations 02/02/22 15:06 ED Decision to Admit Stat 02/03/22 13:46 Consult Gastroenterology Routine Ordered Studies 02/02/22 13:25 CT abd pelvis wo con Stat CT head/brain wo con Stat Laboratory Results WBC 6.57 K/ul (4.8-10.8) 02/08/22 05:52 RBC 3.28 M/uL (3.93-5.22) L 02/08/22 05:52 Hgb 10.2 g/dl (12.0-16.0) L 02/08/22 05:52 Hct 30.4 % (34.1-44.9) L 02/08/22 05:52 MCV 92.7 fL (80.0-100.0) 02/08/22 05:52 MCH 31.1 pg (25.0-34.0) 02/08/22 05:52 MCHC 33.6 g/dL (32.0-36.0) 02/08/22 05:52 RDW Std Deviation 40.6 fL (36.4-46.3) 02/08/22 05:52 RDW Coeff of Jerod 11.9 % (11.5-14.5) 02/08/22 05:52 Plt Count 264 K/uL (130-400) 02/08/22 05:52 MPV 9.2 fL (9.4-12.3) L 02/08/22 05:52 Immature Gran % (Auto) 0.7 % 02/02/22 13:18 Neut % (Auto) 88.4 % 02/02/22 13:18 Lymph % (Auto) 6.0 % 02/02/22 13:18 [place] % (Auto) 4.8 % 02/02/22 13:18 Eos % (Auto) 0.0 % 02/02/22 13:18 Baso % (Auto) 0.1 % 02/02/22 13:18 Neut # (Auto) 8.53 K/uL (1.4-6.5) H 02/02/22 13:18 Lymph # (Auto) 0.58 K/uL (1.2-3.4) L 02/02/22 13:18 [place] # (Auto) 0.46 K/uL (0.24-0.82) 02/02/22 13:18 Eos # (Auto) 0.00 K/uL (0-0.50) 02/02/22 13:18 Baso # (Auto) 0.01 K/uL (0-0.2) 02/02/22 13:18 Immature Gran # (Auto) 0.07 K/uL (0.00-0.02) H 02/02/22 13:18 PT 12.4 Seconds (9.0-12.0) H 02/07/22 06:38 INR 1.2 (0.9-1.1) H 02/07/22 06:38 APTT 33.3 Seconds (21.0-31.0) H 02/02/22 13:18 PTT Ratio 1.2 02/02/22 13:18 Sodium 135 mmol/L (136-145) L 02/08/22 05:52 Potassium 3.9 mmol/L (3.5-5.1) 02/08/22 05:52 Chloride 100 mmol/L (98-107) 02/08/22 05:52 Carbon Dioxide 28 mmol/L (21-32) 02/08/22 05:52 Anion Gap 7 (3-11) 02/08/22 05:52 BUN 16 mg/dl (6-23) 02/08/22 05:52 Creatinine 0.61 mg/dl (0.6-1.2) 02/08/22 05:52 Est Cr Clr Drug Dosing 82.6 ml/min 02/08/22 05:52 Est GFR ( Amer) 105.0 ml/min 02/08/22 05:52 Est GFR (Non-Af Amer) 90.6 ml/min 02/08/22 05:52 BUN/Creatinine Ratio 26.2 (10-20) H 02/08/22 05:52 Glucose 133 mg/dl (70-99(Fasting)) H 02/08/22 05:52 Calcium 8.9 mg/dl (8.5-10.1) 02/08/22 05:52 Ionized Calcium 1.18 mmol/L (1.12-1.32) 02/05/22 08:55 Phosphorus 2.4 mg/dl (2.5-4.9) L 02/08/22 05:52 Magnesium 1.1 mg/dl (1.7-2.4) L 02/08/22 05:52 Iron 39 mcg/dl (35-150) 02/03/22 06:08 TIBC 195 mcg/dl (250-450) L 02/03/22 06:08 Unsaturated IBC 156 mcg/dl (155-355) 02/03/22 06:08 Transferrin % Sat 20 % (15-50) 02/03/22 06:08 Ferritin 471.1 ng/ml (8-388) H 02/03/22 06:08 Total Bilirubin 0.5 mg/dl (0.2-1.0) 02/08/22 05:52 Direct Bilirubin 0.2 mg/dl (0-0.2) 02/02/22 13:18 AST 50 U/L (13-39) H 02/08/22 05:52 ALT 40 U/L (7-52) 02/08/22 05:52 Alkaline Phosphatase 66 U/L (34-104) 02/08/22 05:52 Troponin I High Sens 47.8 pg/ml (0-14) H 02/03/22 09:31 Total Protein 6.6 gm/dl (6.0-8.3) 02/08/22 05:52 Albumin 3.1 gm/dl (3.4-5.0) L 02/08/22 05:52 Globulin 3.5 gm/dl (2.5-4.0) 02/08/22 05:52 Albumin/Globulin Ratio 0.9 (0.9-2) 02/08/22 05:52 LDL Cholesterol Direct Cancelled 02/03/22 06:12 Lipase 172 U/L (11-82) H 02/02/22 13:18 25-OH Vitamin D Total 102.2 ng/ml (30-100) H 02/02/22 13:18 Urine Color Yellow 02/02/22 14:46 Urine Appearance Clear (Clear) 02/02/22 14:46 Urine pH 5.5 (4.5-7.5) 02/02/22 14:46 Ur Specific [place] 1.016 (1.000-1.030) 02/02/22 14:46 Urine Protein 1+ (Negative) H 02/02/22 14:46 Urine Glucose (UA) Negative (Negative) 02/02/22 14:46 Urine Ketones 3+ (Negative) H 02/02/22 14:46 Urine Blood Negative (Negative) 02/02/22 14:46 Urine Nitrite Negative (Negative) 02/02/22 14:46 Urine Bilirubin Negative (Negative) 02/02/22 14:46 Urine Urobilinogen Negative (Negative) 02/02/22 14:46 Ur Leukocyte Esterase Negative (Negative) 02/02/22 14:46 Urine WBC (Auto) 1-5 /hpf (0-5) 02/02/22 14:46 Urine RBC (Auto) 5-10 /hpf (0-4) H 02/02/22 14:46 U Hyaline Cast (Auto) 10-30 /lpf (0-5) H 02/02/22 14:46 U Epithel Cells (Auto) >30 /lpf (0-5) H 02/02/22 14:46 Urine Bacteria (Auto) 1+ (Negative) H 02/02/22 14:46 Stl C. cayetanensis PCR Not Detected (NotDetected) 02/02/22 12:46 Stool Rotavirus A PCR Not Detected (NotDetected) 02/02/22 12:46 Stl Adenov F 40/41 PCR Not Detected (NotDetected) 02/02/22 12:46 Stool Astrovirus (PCR) Not Detected (NotDetected) 02/02/22 12:46 Stool Campylobacter PCR Not Detected (NotDetected) 02/02/22 12:46 Stool Cryptosporidium PCR Not Detected (NotDetected) 02/02/22 12:46 Stl E.coli Shiga Tox PCR Not Detected (NotDetected) 02/02/22 12:46 Stl Enterotoxigenic E PCR Not Detected (NotDetected) 02/02/22 12:46 Stool EPEC (PCR) Not Detected (NotDetected) 02/02/22 12:46 Stool EAEC (PCR) Not Detected (NotDetected) 02/02/22 12:46 Stl E. histolytica PCR Not Detected (NotDetected) 02/02/22 12:46 Stool Giardia Lamblia PCR Not Detected (NotDetected) 02/02/22 12:46 Stool Salmonella PCR Not Detected (NotDetected) 02/02/22 12:46 Stool Sapovirus (PCR) Not Detected (NotDetected) 02/02/22 12:46 Stl P. shigelloides PCR Not Detected (NotDetected) 02/02/22 12:46 Stl Shigella/EIEC PCR Not Detected (NotDetected) 02/02/22 12:46 St Y.enterocolitica PCR Not Detected (NotDetected) 02/02/22 12:46 Stool Vibrio (PCR) Not Detected (NotDetected) 02/02/22 12:46 Stl Vibrio cholerae PCR Not Detected (NotDetected) 02/02/22 12:46 Stl Norovirus GI/GII PCR Not Detected (NotDetected) 02/02/22 12:46 IgA 132.8 mg/dl (70-400) 02/04/22 08:22 IgA 142 mg/dL (70-320) 02/04/22 08:22 Tiss Transglutamin IgA <1.0 U/mL 02/04/22 08:22 Celiac Disease Interp SEE NOTE 02/04/22 08:22 Hepatitis C Ab (EIA) NON-REACTIVE (NON-REACTIVE) 02/02/22 13:18 Hep C Ab Signal/Cutoff 0.03 (<1.00) 02/02/22 13:18 SARS-CoV-2, RNA, NAAT NEGATIVE (NEGATIVE) 02/02/22 15:56 Impressions Abdomen/Pelvis CT 02/02/22 13:25 CT SCAN OF THE ABDOMEN AND PELVIS WITHOUT IV CONTRAST CLINICAL HISTORY: Lower abdominal pain. Nausea and vomiting. COMPARISON STUDY: Abdominal CT dated 01/05/2022. TECHNIQUE: CT scan of the abdomen and pelvis is performed from the lung bases to the proximal femora. Images are reviewed in the axial, sagittal, and coronal planes. IV contrast was not administered for this examination. Note that the examination is suboptimal without oral and IV contrast. There is streak artifact from the arms which could not be elevated above the abdomen. A dose lowering technique was utilized adhering to the principles of ALARA. CT DOSE: 1875.16 mGy.cm FINDINGS: Lung bases: The heart is top normal in size and without pericardial effusion. A calcified granuloma is seen in the right middle lobe. The lung bases are otherwise clear noting dependent atelectasis. Liver: The unenhanced liver is normal in size, contour, and attenuation. There is no intrahepatic biliary ductal dilatation. Gallbladder: Surgically absent noting clips in the gallbladder fossa. Spleen: Normal in size and attenuation. Pancreas: The unenhanced pancreas is moderately atrophic and grossly unremarkable. Adrenal glands: Unremarkable. Kidneys: The unenhanced kidneys demonstrate cortical atrophy and are without hydronephrosis. There are no renal calculi identified. A 3.3 cm cyst is noted on the left. Abdominal vasculature: There is moderate of a sclerotic calcification of the abdominal aorta. There is a 3.2 cm infrarenal abdominal aortic aneurysm. Bowel: There is no bowel obstruction. There is mild infiltration identified around the left colon. The appendix is well-visualized and normal. Asymmetric rectal wall thickening suggested on 01/05/2022 is no longer appreciated. Peritoneum: There is no intraperitoneal free air or abdominal ascites. There is evidence of previous ventral hernia repair. Lymphadenopathy: None. Pelvic viscera: The bladder and uterus are normal as visualized. A 4.2 cm simple cystic lesion in the left adnexa is unchanged and likely related to the left ovary. Skeletal structures: The skeletal structures are osteopenic. There is moderate lumbosacral spondylosis. No lytic or blastic lesions are seen. IMPRESSION: 1. There is faint infiltration identified around the left colon. Correlate clinically for evidence of a mild nonspecific colitis. 2. No bowel obstruction. 3. There is a 3.2 cm infrarenal abdominal aortic aneurysm. 4. Additional findings as above. ACT 112: Negative or not required by law. Electronically signed by: Jesus Galan M.D. 02/02/2022 2:[address] 02/02/22 13:[address] DOSE: HISTORY: headache post vomiting TECHNIQUE: Multiaxial CT images of the head were performed without the use of intravenous contrast. Automated exposure control was utilized for this study. A dose lowering technique was utilized adhering to the principles of ALARA. Comparison: Head CT 10/31/2008. Findings: The paranasal sinuses and mastoid air cells are clear. The calvarium and skull base are intact. There is no mass, hematoma, midline shift, acute infarct. White matter hypodensity is nonspecific but suggestive of microvascular ischemic change. The ventricles and sulci demonstrate mild age-related involutional changes. Impression: No acute intracranial abnormality. Atrophy and microvascular ischemic changes. ACT 112: Negative or not required by law. Electronically signed by: Jarod Cuello M.D. 02/02/2022 2:34 PM Hospital Course (1) Atrial fibrillation with RVR: (2) Hypomagnesemia: (3) Hypokalemia: (4) Nausea vomiting and diarrhea: (5) GERD (gastroesophageal reflux disease): (6) Chronic venous insufficiency: (7) Hypercholesterolemia: (8) High anion gap metabolic acidosis: Plan Nani is a 71 year old female with history of GERD, IBS, T2DM, HLD, OA, venous insufficiency, and Scarlet Fever (1968) who presented for evaluation of ongoing diarrhea (6 wks +). She had been evaluated 01/05 and found to have a negative stool panel at this time. At this visit, she was found to be in AFib RVR with hypokalemia and hypomagnesemia. Patient was admitted for management of new atrial fibrillation in the setting of electrolyte abnormalities. Chronic nausea/Diarrhea - Ddx: Hypervitaminosis, functional diarrhea, malnutrition, secretory diarrhea, allergy (casein, celiac, etc), microscopic colitis, infection SIBO. 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 She did have a subjective 40 lbs weight loss over the past year. Her symptoms significantly improved with broadening of her diet. Prior to admission she was only eating yogurt and bananas. -Imaging was significant for: C:, non-specific colitis; CTAP: Faint infiltration identified around the left colon. Correlate clinically for evidence of a mild nonspecific colitis. No bowel obstruction. - Negative colonoscopy 2019, biopsy negative for microscopic colitis - Labs were significant for: Stool BioFire negative, Celiac Lab Panel: No serologic evidence of celiac disease present Plan: Vitamins held (Vit C, Vit D, Vit E, Vit B) d/t possible association w/ nausea/diarrhea GI Recommending outpatient workup in 1-2 weeks w/ EGD and Colonoscopy Upon discharge she was tolerating full diet without GI symptoms. Malnutrition (Hypomagnesemia/Hypokalemia) - Diet of primarily yogurt and bananas (~ 1 year) and significant weight loss (40 lbs in last year). - Found to be both hypokalemic and hypomagnesemic, both were repleted. - High INR; Given 15 mg Vitamin K d/t low INR, likely 2/2 malnutrition Will need follow up BMP and Mg; may require further oral supplementation. Recommended daily multivitamin with minerals. . Atrial fibrillation with RVR - Present on initial eval in ED with HR 150s, now HR 60-70s after 5 mg IV Lopressor x2 in ED. - Considered 2/2 hypomagnesia and hypokalemia in the setting of 6 weeks of ongoing diarrheal illness - Echo: EF 60-65%, mild mitral and tricuspid regurgitation Started on Eliquis 5 mg PO BID and Metoprolol 12.5 mg PO BID GERD (gastroesophageal reflux disease) - Continue PPI Chronic venous insufficiency: - Encourage compression stockings, elevate legs Hypercholesterolemia: - Declines statin High anion gap metabolic acidosis - With ketones in UA, 6+ weeks of poor appetite, likely due to starvation ketoacidosis - Resolved Bacteruria - Gram negative bacilli noted on urine culture - Patient remains asymptomatic, thus no Abx were given during admission Total Time Total Time Spent Total Time Spent (In Minutes): <30 Discharge Plan Discharge Items Patient Disposition: Home - Self-Care Reason For Visit: AFIB RVR Discharge Diagnosis: chronic diarrhea Activity: Resume your previous activity Non-emergency contact: Primary Care Provider Call non-emergency contact if: you have any medication questions, your pain is not controlled and you have a fever Follow-up/Referrals: Gareth Huitron MD [Primary Care Provider] - (Admitted for malnutrition/chronic diarrhea, was hypokalemic and hypomagnesemia. Will need f/u BMP and Mg in about a week and may require further oral supplementation. ) Lam Mathew MD [Physician] - Diet: Regular Addtl Attending Provider Instructions: You were admitted for chronic diarrhea and malnutrition. We did not identify any sort of infectious cause and ruled out celiac disease. It is possible that your symptoms could be secondary to not eating a lot and the limited diet you were on. The GI doctors would like to see you for follow up as an outpatient and will discuss doing an endoscopy and colonoscopy to further work up this chronic issue. As you were able to eat more, and eat a more diverse diet your symptoms largely resolved, so continue with a well balanced diet at home. Some of the vitamins you were taking at home could make the nausea and diarrhea worse, so we would recommend stopping them and switch to a daily multivitamin with minerals. You can buy this over the counter at the pharmacy. Your electrolytes were low and we repleted them. We could like you to follow up with your primary care doctor and ensure they they check your lab work. The changes in your electrolytes was most likely caused by malnutrition and the chronic diarrhea you were having. You were also found to be in a heart rhythm called atrial fibrillation. You heart rate converted back to a normal rhythm with medications in the emergency department. We would like you to start taking metoprolol twice a day to help control your heart rate and Eliquis to prevent blood clots that can be caused by atrial fibrillation. Pending Studies at Discharge: No Stand-Alone Forms: My [facility] [address], Smoking Cessation Medications and DC Order Prescriptions: New metoprolol tartrate 25 mg Tablet 12.5 mg PO BID 30 Days Qty: 30 1RF Eliquis 5 mg Tablet 5 mg PO BID 30 Days Qty: 60 1RF Continued esomeprazole magnesium [Nexium] 40 mg capsule,delayed release(DR/EC) 40 mg PO QAM Qty: 30 5RF acetaminophen [Tylenol Arthritis Pain] 650 mg Tablet Extended Release 2 tab PO Q12H PRN (Reason: Pain) Discontinued vitamin B complex Tablet 1 tab PO DAILY ascorbic acid (vitamin C) [Vitamin C] 500 mg Tablet,Chewable 500 mg PO QAM vitamin E 400 unit Capsule 400 unit PO QAM cholecalciferol (vitamin D3) [Vitamin D3] 5,000 unit Tablet 5,000 unit PO QPM potassium gluconate 595 mg (99 mg) Tablet Extended Release 1 tab PO QAM turmeric 400 mg Capsule 1 tab PO BID Rx Instructions: WITH CURCUMIN Discharge Orders: Discharge Order (Routine); Ordered 02/08/22 Ordered By: Marjan Garza Admission Data Admit Date/Time: 02/02/22 15:18 Attending Provider: Shane Sánchez Admit Provider: Laz Leo Primary Care Provider: Gareth Huitron Other Providers: Laz Leo ; Eugene Horton Other Interventions: Discharge Summary Assessment (RN) Last Done: 02/08/22 12:21 Supervising Physician Co-Signing Physician Notes Ipersonally examined the patient and verified all zamora points of history and exam, discussed case, and agree with decision making with Dr Garza Eating reasonably. Epigastric discomfort improving. Still no bowel movement. Parag arrivesupdated him on our working diagnosis, and plan as well. She is nervous but cautiously okay with going home vitals noted nad heent nc at mmm breathing unlabored no accessory muscles good effort skin no rashes no pallor or icterus. ongoing epigastric tenderness but now much more mild compared to more moderate yesterday, no guarding rebound or rigidity Chronic diarrheadifferential fairly broad. However, while work-up still underway, at this point the leading differential is really that it is malnutrition from anxiety/depression/loneliness, and the diarrhea may either be IBSD, or could even just be inflicted by her drastically limited diet of yogurt and bananas. Given that she is eating well and doing well, I am starting to really be suspicious there is nothing inflammatory or malabsorptive at play at all. We discussed everything quite frankly and she expresses good understanding. Have followed in the hospital on a regular diet to ensure that this trend continuesand it has, and she will continue to work on a less lonely living situation. Upper abdominal discomfort most likely indigestion given that she is eating much more than she has in months. Symptomatic care, continue to follow up as an outpatient -GI planning on endoscopic work-up in a few weeks as an outpatientdiscussed with patient to keep those appointments for now, but if she continues to do really well, then could cancel at a later date Hypokalemia/hypomagnesemiarepleting, discussed following roughly weekly labs for the foreseeable future as an outpatient Malnutritionas above, severe calorie given her 40 pounds of weight loss over the last year surprisingly only seems to be mild protein. Suspect high INR related to poor p.o. intakegave vitamin K and corrected to 1.3. Improving with improved p.o. intake. Suspect low mag and K are much more a marker of malnutrition than any type of refeeding given the way she has overall clinically improved. Stable for home A. fib/RVRrate controlled/anticoagulated Stable for home, outpatient close PCP follow-up Resident Activity Tracking Resident Involvement: Resident Care Provided Care Provided: Adult Hospital Medicine
--- NOTE | 2022-02-08 15:25 | Billing Data ---
Date of Service February 08, 2022 Coding Level of Care Code D/C DAY MANAGEMENT <30 MINS
== END 2022-02-08 13:05 | disposition home or self-care (01) | DRG 641 ==
LOC: ED 13:08 → SUATTDRO 15:18 → 2S 15:18